=== PATIENT | female | born 1990 | race Two or more races ===

== ENCOUNTER 2023-05-24 21:28 | Outpatient (REF) | payer MEDICAID, SELFPAY ==
[2023-05-31 11:28] LABS: Age Gdln ACOG Testing Note (.); HPV Aptima Negative (Negative); IGP, Aptima HPV, rfx 16/18,45 Note (.)
== END 2023-05-24 21:29 | disposition home or self-care (01) ==
LOC: LAB 21:28
PROVIDERS: Visit Provider Physician Assistant
DX: Z12.4 Encounter for screening for malignant neoplasm of cervix (principal); Z11.51 Encounter for screening for human papillomavirus (HPV)
CPT/HCPCS: 87624; G0145

== ENCOUNTER 2024-07-07 14:49 | Outpatient (OUT) | payer MEDICAID, SELFPAY ==
[2024-07-07 15:13] LABS: Basophils Absolute Auto 0.1 10^3/uL (0.0-0.1); Basophils Percent Auto 1.2 % (0.2-2.0); Eosinophils Absolute Auto 0.8 10^3/uL (0.0-0.7); Eosinophils Percent Auto 7.9 % (0.9-7.0); Hematocrit 43.2 % (36.0-48.0); Hemoglobin 14.6 g/dL (12.0-16.0); Immature Granulocytes Abs Auto 0.03 10^3/uL (0.00-0.03); Immature Granulocytes Pct Auto 0.3 % (0.0-0.5); Lymphocytes Absolute Auto 2.6 10^3/uL (1.2-3.8); Lymphocytes Percent Auto 25.3 % (20.5-60.0); Mean Corpuscular HGB Conc 33.8 g/dL (29.9-35.2); Mean Corpuscular Hemoglobin 30.7 pg (26.7-34.0); Mean Corpuscular Volume 90.8 fL (81.0-99.0); Monocytes Absolute Auto 0.8 10^3/uL (0.3-0.8); Monocytes Percent Auto 7.6 % (1.7-12.0); Neutrophils Percent Auto 57.7 % (43.0-75.0); Platelet Count 279 10^3/uL (150-450); Red Blood Count 4.76 10^6/uL (4.20-5.40); Red Cell Distribution Width 11.9 % (11.0-15.0); White Blood Count 10.3 10^3/uL (4.0-11.0)
[2024-07-07 15:41] LABS: Estimated Average Glucose 103 mg/dL; Glycohemoglobin A1C 5.2 % (4.5-6.2)
[2024-07-07 15:47] LABS: Thyroid Stimulating Hormone 1.034 uIU/mL (0.358-3.740)
[2024-07-07 15:50] LABS: HCG Quantitative <1 mIU/mL
[2024-07-08 04:12] LABS: Estradiol 22.5 pg/mL (.); FSH 7.4 mIU/mL (.); Luteinizing Hormone(LH) 9.2 mIU/mL (.)
[2024-07-09 22:06] LABS: Anti-Mullerian Hormone (AMH) 8.12 ng/mL (.)
== END 2024-07-07 14:50 | disposition home or self-care (01) ==
LOC: LAB 14:51
PROVIDERS: Visit Provider Obstetrics & Gynecology
DX: N92.6 Irregular menstruation, unspecified (principal)
CPT/HCPCS: 36415; 82397; 82626; 82627; 82670; 83001; 83002; 83036; 84439; 84443; 84702; 85025

== ENCOUNTER 2024-08-23 11:01 | Outpatient (OUT) | payer MEDICAID, SELFPAY ==
--- OUTSIDE RECORDS SUMMARY | 2024-08-23 11:04 | XMS_ITS | CCD ---
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 soft. Musculoskeletal: Cervical back: Normal range of motion and neck supple. No rigidity or tenderness. Right lower leg: No edema. Left lower leg: No edema. Lymphadenopathy: Cervical: No cervical adenopathy. Skin: General: Skin is warm and dry. Capillary Refill: Capillary refill takes less than 2 seconds. Findings: No erythema or rash. Neurological: General: No focal deficit present. Mental Status: She is alert and oriented to person, place, and time. Sensory: No sensory deficit. Motor: No weakness. Coordination: Coordination normal. Gait: Gait normal. Deep Tendon Reflexes: Reflexes normal. Psychiatric: Mood and Affect: Mood normal. Behavior: Behavior normal. Assessment/Plan Discussed concussion and symptoms. Discussed that she may continue to have symptoms for weeks, but to please ensure adequate hydration and rest. She will call the office if symptoms do not improve or worsen. She will let me know if she needs a work of school or work. She can continue with tylenol, ibuprofen, and cyclobenzaprine PRN. She can take daily antihistamine and flonase for rhinorrhea. Keep routine FU. Jaya was seen today for follow-up. Diagnoses and all orders for this visit: Postconcussive syndrome Strain of neck muscle, subsequent encounter Strain of lumbar region, subsequent encounter Other orders - fluticasone propionate (FLONASE) 50 mcg/actuation nasal spray; Administer 2 sprays into each nostril in the morning. - loratadine (CLARITIN) 10 mg tablet; Take 1 tablet (10 mg total) by mouth in the morning. JERSEY Shin 12/23/23 1428 documented in this encounter [facility] 12-07-2023 History of Presen t illness Narrative Subjective Patient ID: Jaya Jones is a 33 y.o. female. HPI Jaya presents to the office for follow up on anxiety. She was initiated on Effexor 37.5 mg and these seems to be working for her anxiety and helping the migraines as well. She reports she has not taken the hydroxyzine, she is concerned about the side effects as she is going to school and has long hours of both work and school, and cannot afford to have to take a nap. Jaya reports she has been taking Magnesium 250 mg for about 2 weeks at bedtime and this also seems to be working well for her. She reports she continues to get anxiety, she feels that she gets palpitations during stressful times. She feels that these periods of anxiety or stress occur about 3 times weekly. The following portions of the patient's history were reviewed and updated as appropriate: allergies, current medications, past family history, past medical history, past social history, past surgical history, and problem list. Review of Systems Constitutional: Negative for chills, diaphoresis, fatigue, fever and unexpected weight change. HENT: Negative. Respiratory: Negative for chest tightness, shortness of breath and wheezing. Cardiovascular: Positive for palpitations. Negative for chest pain and leg swelling. Gastrointestinal: Negative for abdominal pain and blood in stool. Genitourinary: Negative for dysuria and hematuria. Musculoskeletal: Negative. Skin: Negative. Neurological: Negative for dizziness, syncope, weakness and light-headedness. Psychiatric/Behavioral: Negative for self-injury and suicidal ideas. The patient is nervous/anxious. Objective Physical Exam Vitals and nursing note reviewed. Constitutional: Appearance: Normal appearance. HENT: Head: Normocephalic and atraumatic. Cardiovascular: Rate and Rhythm: Normal rate and regular rhythm. Pulses: Normal pulses. Heart sounds: Normal heart sounds. Pulmonary: Effort: Pulmonary effort is normal. No respiratory distress. Breath sounds: Normal breath sounds. No stridor. No wheezing, rhonchi or rales. Chest: Chest wall: No tenderness. Musculoskeletal: Cervical back: Normal range of motion and neck supple. Right lower leg: No edema. Left lower leg: No edema. Skin: General: Skin is warm and dry. Capillary Refill: Capillary refill takes less than 2 seconds. Findings: No erythema or rash. Neurological: General: No focal deficit present. Mental Status: She is alert and oriented to person, place, and time. Psychiatric: Mood and Affect: Mood normal. Behavior: Behavior normal. Assessment/Plan She can keep the hydroxyzine and use it if needed. We will add buspar for anxiety. Discussed possibly propranolol as well for anxiety, but this was just a potential thought if buspar not effective. FU 3 months or sooner PRN. Diagnoses and all orders for this visit: Anxiety Other orders - busPIRone (BUSPAR) 5 mg tablet; Take 1 tablet (5 mg total) by mouth in the morning and at bedtime. FrankJERSEY Trejo 12/09/23 1743 documented in this encounter [facility] 12-04-2023 Miscellaneous Notes Formattin g of this note might be different from the original. Please call patient, she has questions regarding her medication Patient called again. Patient has upcoming appointment with PCP on 12/07/2023 at 4:00 PM. Patient needs a refill of Venlafaxine 37.5mg. Chart is showing she has two refills at [facility] pharmacy. Patient states pharmacy says there are no refills. Patient took her last pill yesterday 12/03/2023 and is requesting refill. Is someone able to contact [facility] and find out what is going on? Thank you. Called pharmacy and they stated they had rx ready for patient to citrus picker. Called patient and informed her. She stated understanding. documented in this encounter [facility] 12-04-2023 Telephone encount er Note Please call patient, she has questions regarding her medication [facility] 12-04-2023 Telephone encount er Note Patient called again. Patient has upcoming appointment with PCP on 12/07/2023 at 4:00 PM. Patient needs a refill of Venlafaxine 37.5mg. Chart is showing she has two refills at [facility] pharmacy. Patient states pharmacy says there are no refills. Patient took her last pill yesterday 12/03/2023 and is requesting refill. Is someone able to contact [facility] and find out what is going on? Thank you. [facility] 12-04-2023 Telephone encount er Note Called pharmacy and they stated they had rx ready for patient to citrus picker. [facility] 12-04-2023 Telephone encount er Note Called patient and informed her. She stated understanding. [facility] [employer] [facility] Evaluation note Diagnosis Anxiety- Primary Anxiety state, unspecified [facility] Diagnosis Postconcussive syndrome- Primary Postconcussion syndrome Strain of neck muscle, subsequent encounter Strain of lumbar region, subsequent encounter [facility]* Diagnosis Fever, unspecified fever cause- Primary documented in this encounter [facility] [employer] SystemInstructionsNot on filedocumented in this [facility]* Attachments The following attachments cannot be sent through Care Everywhere. * Propranolol, ADULT (Croatian) * Buspirone, ADULT (Croatian) [facility] Attachments The following attachments cannot be sent through Care Everywhere. * Post-Concussion Syndrome ED (Croatian) * Concussion in adults (Croatian) [facility] SystemInstructionsNot on file [facility] Summary Purpose Family History No Family History Records FoundNo Family History Records FoundNo Family History Records FoundNo Family History Records FoundNo Family History Records Found Advance Directives No Advanced Directives Records FoundNo Advanced Directives Records FoundNo Advanced Directives Records FoundNo Advanced Directives Records FoundNo Advanced Directives Records Found Additional Source Comments INFORMATION SOURCE (unrecogn ized section and content) DATE CREATED AUTHOR 12/22/2020 [facility] DATE CREATED AUTHOR AUTHOR'S ORGANIZ ATION 12/17/2023 [facility] DATE CREATED AUTHOR AUTHOR'S ORGANIZ ATION 03/29/2024 [facility] DATE CREATED AUTHOR AUTHOR'S ORGANIZ ATION 04/25/2024 [facility] DATE CREATED AUTHOR AUTHOR'S ORGANIZ ATION 07/08/2024 [facility] EP[facility] Reason for Visit (unrecogniz ed section and content) Reason Onset Date Comments questions regarding her medications 12/04/2023 Reason Comments Follow-up Concussion Reason Comments Med Refill Care Teams (unrecognized sec tion and content) Benefits Specialist Relationship Specialty Start Date End Date Frank Bennett APRN-CNP PCP - General Nurse Practitioner 05/25/23 Benefits Specialist Relationship Specialty Start Date End Date Frank Bennett APRN-CNP PCP - General Nurse Practitioner 05/25/23 Benefits Specialist Relationship Specialty Start Date End Date Frank Bennett APRN-CNP [address] [place] [phone] PCP - General Nurse Practitioner 12/16/23 Benefits Specialist Relationship Specialty Start Date End Date Frank Bennett APRN-CNP [address] [place] [phone] PCP - General Nurse Practitioner 12/16/23 FOR RECORDS PERTAINING TO PATIENTS WHO ARE OR HAVE BEEN ENROLLED IN A CHEMICAL DEPENDENCY/SUBSTANCEABUSE PROGRAM, SOME INFORMATION MAY BE OMITTED. This clinical summary was aggregated from multiple sources. Caution should be exercised in using it in the provision of clinical care. This summary normalizes information from multiple sources, and as a consequence, information in this document may materially change the coding, format and clinical context of patient data. In addition, data may be omitted in some cases. CLINICAL DECISIONS SHOULD BE BASED ON THE PRIMARY CLINICAL RECORDS. [facility]. provides no warranty or guarantee of the accuracy or completeness of information in this document.
--- NOTE | 2024-08-23 11:06 | US_ITS ---
[address] [address] Patient Name: JAYA JENNINGS MRN: [id number] date: 1990 Sex: F Assigned Patient Location: US Current Patient Location: Accession/Order Number: [id number] Exam Date: 08/23/2024 11:08 Report Date: 08/24/2024 04:30 At the request of: SARAH WISDOM Procedure: US OB transvaginal EXAMINATION: US OB transvaginal HISTORY: IRREGULAR MENSTRUAL CYCLES N92.6 COMPARISON: No relevant comparison available. FINDINGS: GESTATIONAL SAC: Present YOLK SAC: Present POLE: Absent CARDIAC: Absent UTERUS: Normal size and appearance. OVARIES: Right: Normal. Left: Corpus lutein cyst. CERVIX: Closed. Length was not measured.. CUL-DE-SAC: Normal. OTHER: None. AGE BY LMP: Not provided NIXON BY LMP: AGE BY US CRL: Not provided NIXON BY US CRL: US/US OB transvaginal IMPRESSION: 1. Intrauterine gestational sac containing a yolk sac. Gestational sac size was not measured to allow calculation of estimated gestational age. Follow-up recommended. Electronically authenticated by: NAVI JEFFRIES Date: 08/24/2024 04:30
== END 2024-08-23 11:02 | disposition home or self-care (01) ==
LOC: US 11:02
PROVIDERS: Visit Provider Obstetrics & Gynecology
DX: N92.6 Irregular menstruation, unspecified (principal)
CPT/HCPCS: 76817

== ENCOUNTER 2024-10-02 14:54 | Outpatient (OUT) | payer MEDICAID, SELFPAY ==
--- NOTE | 2024-10-02 14:57 | US_ITS ---
[address] [address] Patient Name: JAYA JENNINGS MRN: [id number] date: 1990 Sex: F Assigned Patient Location: [facility] Current Patient Location: [facility] Accession/Order Number: [id number] Exam Date: 10/02/2024 14:58 Report Date: 10/04/2024 08:31 At the request of: SARAH WISDOM Procedure: US OB <= 14 weeks fetus EXAMINATION: US OB <= 14 weeks fetus HISTORY: MISSED MENSES COMPARISON: Ultrasound OB transvaginal 08/23/2024 FINDINGS: GESTATIONAL SAC: Present and normal appearing. YOLK SAC: Not seen. POLE: Present and normal appearing. CARDIAC: 159 bpm UTERUS: Normal size and appearance. OVARIES: Right: Not seen. Left: Corpus lutein cyst. CERVIX: Not measured.. CUL-DE-SAC: Normal. OTHER: None. AGE BY LMP: 13 weeks 1 day NIXON BY LMP: 04/08/2025 AGE BY US CRL: 12 weeks 2 days NIXON BY US CRL: 04/14/2025 US/US OB <= 14 weeks fetus IMPRESSION: 1. Single live intrauterine . Electronically authenticated by: NAVI JEFFRIES Date: 10/04/2024 08:31
--- OUTSIDE RECORDS SUMMARY | 2024-10-02 15:11 | XMS_ITS | CCD ---
Author Organization [facility] Care Team Providers Care Lay Out And Detail Drafter Name Role Phone REQUEST, NONE LISTED Admitting Unavailable BRAD WRIGHT Consulting Unavailable REQUEST, NONE LISTED Attending Unavailable REQUEST, NONE LISTED Attending Unavailable REQUEST, NONE LISTED Consulting Unavailable REQUEST, NONE LISTED Admitting Unavailable Bennett Huma PUTNAMndra Primary Care Provider BENNETT, FRANK Primary Care Unavailable CHITRA JEFFREY Attending Unavailable RACHELECHITRA VO Attending Unavailable RACHELECHITRA VO H Referring Unavailable BENNETT, FRANK Primary Care Unavailable Bennett PLUMBING CONTRACTOR-PRINTER APPRENTICE Frank Primary Care Provider BENNETT, FRANK Referring [...] Referring Unavailable BENNETT, FRANK Primary Care Unavailable Hayden Duque MD Primary Care Provider SARAH DHALIWAL Attending Unavailable SARAH DHALIWAL Attending Unavailable Allergies Allergy Classification Reported Allergen(s) Allergy Type Date of Onset Reaction(s) Facility (9 sources) Penicillins; Translations: [PENICILLINS] Propensity to adverse reactions to drug 2 [facility] (3 sources) Penicillins Drug Intolerance 2 Palpitations [facility] Work Phone: Medications Current Medications Medication Drug Class(es) Dates [...] every six hours as needed for headache xclhuel-bmevhmgmmqhps-xqbvcmls (EXCEDRIN MIGRAINE) 250-250-65 mg per tablet Take [...] within 12 hours or as directed by MD 30 patch 0 12/16/2023 Active loratadine 10 mg oral tablet (3 sources) Start: 12-20-2023 take 1 tablet by mouth in the morning loratadine (CLARITIN) 10 mg tablet Take 1 tablet (10 mg total) by mouth in the morning. 30 tablet 2 12/20/2023 Active 24 hr metFORMIN hydrochloride 500 mg extended release oral tablet (3 sources) Biguanide Start: 07-07-2024 take 1 tablet by mouth every twenty-four hours at mealtime metFORMIN XR (Glucophage-XR) 500 MG 24 hr tablet Indications: Encounter for weight management Take 1 tablet (500 mg) by mouth in the evening. Take with meals Do not crush, chew, or split. 30 tablet 11 07/07/2024 Active 24 hr venlafaxine 37.5 mg extended [...] Translations: [Candidal stomatitis] Onset: 03-26-2024 Episodic Other complications of (4 sources) Uncertain viability of ; Translations: [ with inconclusive viability, not applicable or unspecified] Onset: 09-22-2024 09-22-2024 Episodic Other injuries and conditions due to external causes (2 sources) Injury of head Onset: 12-16-2023 Episodic Other and delivery including normal (4 sources) ; Translations: [Encounter for supervision of normal , unspecified, unspecified trimester] Onset: 09-22-2024 09-22-2024 Episodic Unclassified (1 source) Rash Onset: 03-26-2024 [...] are dependent on adequate specimen collection. Normal [facility] Comment on above: Performed By: #### C GS #### [facility] ([id number]) [address] [place] [address], [address] [place] [address] HERPES/VARICELLA VIRAL PCRon 03-26-2024 HERPES/VARICELLA VIRAL PCR SPECIMEN SOURCE LESION ORAL CAVITY HERPES SIMPLEX 1 PCR Negative (qualifier value) HSV 1 DNA Not Detected HERPES SIMPLEX 2 PCR Negative (qualifier value) HSV 2 DNA Not Detected VARICELLA ZOSTER PCR Negative (qualifier value) VZV DNA Not Detected Normal [facility] Comment on above: Performed By: #### H SVVZV #### [facility] ([id number]) [address] [place] [address], [address] [place] [address] POCT Influenza A/Influenza B /SARS-COV-2 Veritoron 12-24-2023 External Poct Influenza A Antigen Negative [facility] External Poct Influenza B Antigen Negative [facility] Interpretation and review of laboratory results Normal [facility] SARS-CoV-2 (COVID-19) Ag IA.rapid Ql (Resp) Negative [facility] CT BRAIN WO CONTon CT BRAIN [...] Yonas Leong on 12/16/2023 10:26 PM Normal [facility] CT CERVICAL SPINE WO CONTon 12-17-2023 CT [...] Cruz MD on 12/16/2023 10:25 PM Normal [facility] HCG ( test) Ql (U)o n 12-17-2023 Beta HCG ( test) Ql (U) Negative Normal NEG [facility] Comment on above: Performed By: #### 2 106-3 #### [facility] ([id number]) [address] [place] [address], [place] [address] URN MACROSCOPIC NURon 2023 BILIRUBIN YIN Negative Normal NEG [facility] Comment on above: Performed By: #### N UM #### [facility] ([id number]) [address] [place] [address] [place] [address] BLOOD/HGB YIN Large Abnormal NEG [facility] Comment on above: Performed By: #### N UM #### [facility] ([id number]) [address] [place] [address], [place] [address] GLUCOSE YIN Negative Normal NEG [facility] Comment on above: Performed By: #### N UM #### [facility] ([id number]) [address] [place] [address] [place] [address] KETONES YIN Negative Normal NEG [facility] Comment on above: Performed By: #### N UM #### [facility] ([id number]) [address] [place] [address] [place] [address] LEUKOCYTE ESTERASE YIN Negative Normal NEG [facility] Comment on above: Performed By: #### N UM #### [facility] ([id number]) [address] [place] [address] [place] [address] NITRITE YIN Negative Normal NEG [facility] Comment on above: Performed By: #### N UM #### [facility] ([id number]) [address] [place] [address] [place] [address] PH YIN 6.5 Normal 5.0-8.5 [facility] Comment on above: Performed By: #### N UM #### [facility] ([id number]) [address] [place] [address] [place] [address] PROTEIN YIN Negative Normal NEG [facility] Comment on above: Performed By: #### N UM #### [facility] ([id number]) [address] [place] [address], [place] [address] SPECIFIC GRAVITY YIN 1.025 Normal 1.003-1.035 [facility] Comment on above: Performed By: #### N UM #### [facility] ([id number]) [address] [place] [address] [place] [address] UROBILINOGEN YIN 0.2 eu/dL Normal <1.1 [facility] Comment on above: Performed By: #### N UM #### [facility] ([id number]) [address] [place] [address] XR SPINE LUMBAR 2 OR 3 VWSon [...] Cruz MD on 12/16/2023 10:25 PM Normal [facility] Vital Signs Date Time Vital Sign Value Performing Clinician Facility 09-22-2024 09:23-0500 Body weight 74.75 kg Owlin DO Work Phone: [facility] 09-22-2024 09:23-0500 Diastolic blood pressure 62 mm[Hg] Sarah Isra DO Work Phone: [facility] 09-22-2024 09:23-0500 Systolic blood pressure 94 mm[Hg] Sarah Isra DO Work Phone: [facility] 12-20-2023 13:46-0500 Body mass index (BMI) [Ratio] 27.33 kg/m2 Frank Bennett PLUMBING CONTRACTOR-PRINTER APPRENTICE Work Phone: [facility] 12-20-2023 13:46-0500 Body temperature 98.01 [degF] Frank Bennett PLUMBING CONTRACTOR-PRINTER APPRENTICE Work Phone: [facility] 12-20-2023 13:46-0500 Body weight 67.77 kg Frank Bennett PLUMBING CONTRACTOR-PRINTER APPRENTICE Work Phone: [facility] 12-20-2023 13:46-0500 Diastolic blood pressure 64 mm[Hg] Frank Bennett PLUMBING CONTRACTOR-PRINTER APPRENTICE Work Phone: [facility] 12-20-2023 13:46-0500 Heart rate 99 /min Frank Bennett PLUMBING CONTRACTOR-PRINTER APPRENTICE Work Phone: [facility] 12-20-2023 13:46-0500 SaO2% (BldA) [Mass fraction] 96 % Frank Bennett PLUMBING CONTRACTOR-PRINTER APPRENTICE Work Phone: [facility] 12-20-2023 13:46-0500 Systolic blood pressure 116 mm[Hg] Frank Bennett PLUMBING CONTRACTOR-PRINTER APPRENTICE Work Phone: [facility] 12-07-2023 16:03-0500 Body height 152.4 cm Frank Bennett PLUMBING CONTRACTOR-PRINTER APPRENTICE Work Phone: [facility] 12-07-2023 16:03-0500 Body mass index (BMI) [Ratio] 29.33 kg/m2 Frank Bennett PLUMBING CONTRACTOR-PRINTER APPRENTICE Work Phone: [facility] 12-07-2023 16:03-0500 Body temperature 98.49 [degF] Frank Bennett PLUMBING CONTRACTOR-PRINTER APPRENTICE Work Phone: [facility] 12-07-2023 16:03-0500 Body weight 68.13 kg Frank Bennett PLUMBING CONTRACTOR-PRINTER APPRENTICE Work Phone: [facility] 12-07-2023 16:03-0500 Diastolic blood pressure 78 mm[Hg] Frank Bennett PLUMBING CONTRACTOR-PRINTER APPRENTICE Work Phone: [facility] 12-07-2023 16:03-0500 Heart rate 95 /min Frank Bennett PLUMBING CONTRACTOR-PRINTER APPRENTICE Work Phone: [facility] 12-07-2023 16:03-0500 Respiratory rate 18 /min Frank Bennett PLUMBING CONTRACTOR-PRINTER APPRENTICE Work Phone: [facility] 12-07-2023 16:03-0500 SaO2% (BldA) [Mass fraction] 98 % Frank Bennett PLUMBING CONTRACTOR-PRINTER APPRENTICE Work Phone: [facility] 12-07-2023 16:03-0500 Systolic blood pressure 118 mm[Hg] Frank Bennett PLUMBING CONTRACTOR-PRINTER APPRENTICE Work Phone: [facility] Encounters Encounter Date Encounter Type Care Provider Facility Start: 09-22-2024 End: 09-22-2024 Bamboo flowsheet Sarah Isra DO Work Phone: [facility] Start: 09-22-2024 End: 09-22-2024 Bamboo flowsheet Sarah Isra DO Work Phone: [facility] Start: 09-22-2024 End: 09-22-2024 Office outpatient visit 15 minutes Sarah Isra DO Work Phone: [facility] Comment on above: with uncer tain viability, single or unspecified fetus; , unspecified gestational age Start: 09-22-2024 End: 09-22-2024 ambulatory SARAH ISRA Not Available Start: 07-07-2024 End: 07-07-2024 ambulatory SARAH ISRA Not Available Start: 04-24-2024 End: 04-24-2024 ambulatory [facility] Start: 03-26-2024 End: 03-27-2024 ambulatory [facility] Start: 03-26-2024 End: 03-26-2024 ambulatory [facility] Start: 12-25-2023 Refill Frank Roja s PLUMBING CONTRACTOR-PRINTER APPRENTICE [facility] Start: 12-24-2023 End: 12-24-2023 Clinical Support Frank Camposs PLUMBING CONTRACTOR-PRINTER APPRENTICE Work Phone: [facility] Comment on above: Fever, unspecified f ever cause (Primary Dx) Start: 12-20-2023 End: 12-20-2023 ambulatory [facility] Start: 12-20-2023 End: 12-20-2023 Office outpatient visit 15 minutes Frank Bennett PLUMBING CONTRACTOR-PRINTER APPRENTICE Work Phone: [facility] Comment on above: Postconcussive syndr ome (Primary Dx); Strain of neck muscle, subsequent encounter; Strain of lumbar region, subsequent encounter Start: 12-16-2023 End: 12-17-2023 Emergency department patient visit CHITRA JEFFREY [facility] Start: 12-07-2023 End: 12-07-2023 Office outpatient visit 10 minutes [facility] PLUMBING CONTRACTOR-PRINTER APPRENTICE Work Phone: [facility] Comment on above: Anxiety (Primary Dx) Start: 12-07-2023 End: 12-07-2023 ambulatory [facility] Start: 12-04-2023 Telephone encounter Yazmin Avila CMA [facility] Comment on above: questions regarding her medications Start: 12-22-2020 End: 12-23-2020 Patient encounter procedure NONE LISTED REQUEST Facility: Start: 11-24-2020 End: 11-25-2020 Patient encounter procedure NONE LISTED REQUEST Facility: Procedures Date Procedure Procedure Detail Performing Clinician Start: 12-24-2023 POCT INFLUENZA A/INF LUENZA B/SARS-COV-2 VERITOR [facility] Bennett PLUMBING CONTRACTOR-PRINTER APPRENTICE Work Phone: Start: 12-20-2023 Follow-up visit Follow-up STARLA BENNETT Start: 12-07-2023 Adult depression scr eening assessment Frank Bennett PLUMBING CONTRACTOR-PRINTER APPRENTICE Work Phone: Start: 05-25-2023 Adult depression scr eening assessment Yazmin Avila CMA Start: 05-24-2023 Microscopic observat ion [Identifier] in Cervix by Cyto stain Sarah Dhaliwal DO Work Phone: Plan of Treatment Date Care Activity Detail Author Start: 06-28-2028 Screening for malign ant neoplasm of cervix [facility] Start: 02-02-2028 DTaP,Tdap and Td Vaccines (7 - Td or Tdap) DTaP,Tdap and Td Vaccines (7 - Td or Tdap) [facility] Start: 05-24-2026 Screening for malign ant neoplasm of cervix Pap Smear [facility] Start: 12-23-2024 Tobacco Screening Tobacco Screening [facility] Start: 12-20-2024 Adult BMI Screening Adult BMI Screen ing [facility] Start: 12-20-2024 Tobacco Screening Tobacco Screening [facility] Start: 12-07-2024 Adult BMI Screening Adult BMI Screen ing [facility] Start: 12-07-2024 Depression Screening Depression Scre ening [facility] Start: 12-07-2024 Tobacco Screening Tobacco Screening [facility] Start: 10-02-2024 End: 10-02-2024 ambulatory 10/02/2024 3:00 PM EST Initial [facility] [address] [facility] [place] [id number] [facility] Start: 10-02-2024 End: 10-02-2024 Professional / ancillary services management 10/02/2024 2:30 PM EST Ancillary Procedure [facility] [address] [place] [id number] [facility] Start: 10-01-2024 Adult BMI Screening Adult BMI Screen ing [facility] Start: 10-01-2024 Tobacco Screening Tobacco Screening [facility] Start: 09-22-2024 End: 09-22-2024 Patient encounter procedure 09/22/2024 8:50 AM EST Office Visit [facility] [address] [place] [id number] Sarah Dhaliwal DO [address] [place] [address] Arrived [facility] Comment on above: Arrived Start: 07-13-2024 Influenza vaccination Influenza Vacc ine (#1) [facility] Start: 05-25-2024 Depression Screening Depression Scre ening [facility] Start: 03-14-2024 End: 03-14-2024 Patient encounter procedure 03/14/2024 4:00 PM EDT Office Visit [facility] [address] [place] [address], [place] [phone] Frank Bennett APRN-PRINTER APPRENTICE [address] [place] [address], [place] [address] [facility] Start: 12-07-2023 End: 12-07-2023 Patient encounter procedure 12/07/2023 4:00 PM EST Office Visit [facility] [address] [place] [address], [place] [phone] Frank Bennett APRN-PRINTER APPRENTICE [address] [place] [id number] [facility] Start: 07-13-2023 COVID-19 Vaccine ( season) COVID-19 Vaccine ( season) [facility] Start: 2013 Screening for malign ant neoplasm of cervix Pap Smear [facility] Start: 2010 Adult BMI Follow Up Plan Adult BMI Follow Up Plan [facility] Immunizations Immunization Date Immunization Notes Care Provider Fa nitesh 08-16-2023 influenza, injectabl e, quadrivalent, preservative free Yazmin Avila [facility] 08-16-2023 influenza virus vacc ine, unspecified formulation Sarah Dhaliwal DO Work Phone: [facility] 02-01-2018 tetanus toxoid, redu ambrose diphtheria toxoid, and acellular pertussis vaccine, adsorbed Yazmin Avila [facility] 11-11-2012 Human Papillomavirus 9-valent vaccine Yazmin Avila [facility] 08-28-2006 influenza, seasonal, injectable Yazmin Avila [facility] 06-27-2006 tetanus toxoid, redu ambrose diphtheria toxoid, and acellular pertussis vaccine, adsorbed Yazmin Avila [facility] 08-18-2000 measles, mumps and rubella virus vaccine Yazmin [facility] 02-12-1996 diphtheria, tetanus toxoids and acellular pertussis vaccine, unspecified formulation Yazmindontae Avila [facility] 02-12-1996 hepatitis B vaccine, pediatric or pediatric/adolescent dosage Yazmin [facility] 02-06-1995 diphtheria, tetanus toxoids and acellular pertussis vaccine, unspecified formulation [facility] 02-06-1995 haemophilus influenz ae type b vaccine, conjugate unspecified formulation Yazmin [facility] 02-06-1995 hepatitis B vaccine, pediatric or pediatric/adolescent dosage Yazmin [facility] 02-06-1995 poliovirus vaccine, unspecified formulation [facility] 11-01-1994 diphtheria, tetanus toxoids and acellular pertussis vaccine, unspecified formulation [facility] 11-01-1994 haemophilus influenz ae type b vaccine, conjugate unspecified formulation [facility] 11-01-1994 measles, mumps and rubella virus vaccine Yazmin [facility] 11-01-1994 poliovirus vaccine, unspecified formulation Yazmin [facility] 03-07-1993 diphtheria, tetanus toxoids and acellular pertussis vaccine, unspecified formulation Yazmin [facility] 03-07-1993 haemophilus influenz ae type b vaccine, conjugate unspecified formulation [facility] 03-07-1993 hepatitis B vaccine, pediatric or pediatric/adolescent dosage Yazmin [facility] 03-07-1993 poliovirus vaccine, unspecified formulation [facility] Payers Date Payer Category Payer Medicaid [id number] 2023 Medicaid [id number] 1992 Unknown [id number] 2.16.8 [id number] 1992 Unknown [id number] 2.16.8 [id number] 1992 Unknown [id number] 2.16.8 [id number] 1992 Unknown [id number] 2.16.8 40.1.979882.3.579.2.1286 1992 Unknown [id number] 2.16.8 40.1.771722.3.579.2.1286 1992 Unknown [id number] 2.16.8 40.1.135912.3.579.2.1286 1992 Unknown [id number] 2.16.8 40.1.290889.3.579.2.1286 1992 Unknown [id number] 2.16.8 40.1.771909.3.579.2.1286 1992 Unknown [id number] 2.16.8 [id number] 1992 Unknown [id number] 2.16.8 40.1.821021.3.579.2.1286 1992 Unknown [id number] 2.16.84 0.1.440760.3.579.2.9 1992 Unknown [id number] 2.16.84 [id number] 1959 Self-pay Unknown [id number] 2.16.84 [id number] Unknown [id number] 2.16.84 [id number] Social History Date Type Detail Facility Start: 05-23-2023 End: 05-25-2023 Tobacco smoking status ILIS Never smoked tobacco [facility] Start: 05-25-2023 Tobacco use and exposure Smokeless tobacco non-user [facility] Start: 10-01-2023 End: 07-07-2024 Alcohol intake Lifetime non-drinker (finding) [facility] Start: 10-01-2023 End: 07-07-2024 History of Social function [facility] Start: 10-01-2023 End: 07-07-2024 Tobacco use panel [facility] Adolescent depressio n screening assessment 0 [facility] Start: 1990 Sex Assigned At Not on file P [facility] Clinical Notes 12-04-2023 to 09-22-2024 Makayla Mirandafrida, [employer] - 09/22/2024 8:50 AM ESTFrank Bennett, [facility] - 12/24/2023 1:00 PM ESTAddendum Note - Frank Martínezjas, PLUMBING CONTRACTOR-[facility] - 12/24/2023 1:00 PM EST Note Date & Type Note Facility 09-22-2024 History of Presen t illness Narrative Reason for Appointment: Patient ID: Patience Jones is a 34 y.o. female who presents for No chief complaint on file. Patient presents today for Consult appointment. MEDICATIONS Current Outpatient Medications Medication Instructions metFORMIN XR (GLUCOPHAGE-XR) 500 mg, Oral, Daily with evening meal, Do not crush, chew, or split. ALLERGIES Allergies Allergen Reactions Penicillins Palpitations PROBLEMS Active Ambulatory Problems Diagnosis Date Noted No Active Ambulatory Problems Resolved Ambulatory Problems Diagnosis Date Noted No Resolved Ambulatory Problems Past Medical History: Diagnosis Date Ganglion cyst of wrist, left HISTORY PAST MEDICAL HISTORY SOCIAL HISTORY Past Medical History: Diagnosis Date Ganglion cyst of wrist, left Social History Tobacco Use Smoking status: Never Smokeless tobacco: Not on file Substance Use Topics Alcohol use: Never Drug use: Not on file FAMILY HISTORY No family history on file. SURGICAL HISTORY No past surgical history on file. REVIEW OF SYSTEMS Review of Systems: Review of Systems All other systems reviewed and are negative. OBJECTIVE Objective: Physical Exam Constitutional: Appearance: Normal appearance. She is well-developed. Cardiovascular: Rate and Rhythm: Normal rate and regular rhythm. Pulmonary: Effort: Pulmonary effort is normal. Breath sounds: Normal breath sounds. Abdominal: General: Bowel sounds are normal. There is no distension. Palpations: Abdomen is soft. Tenderness: There is no abdominal tenderness. There is no guarding or rebound. Musculoskeletal: General: No swelling. Normal range of motion. Right lower leg: No edema. Left lower leg: No edema. Neurological: Mental Status: She is alert and oriented to person, place, and time. Skin: General: Skin is warm and dry. Psychiatric: Mood and Affect: Mood normal. Behavior: Behavior normal. Vitals and nursing note reviewed. Exam conducted with a sliver handler present. Vitals: There is no height or weight on file to calculate BMI. BP: No LMP recorded. ASSESSMENT & PLAN Patient presents today for follow up ultrasound. Patient made aware that office attempted to contact her with results. Bedside scan performed and viable shown. Patient to schedule for OB Intake. Patient verbalized understanding and excited for the news. Documented by Makayla Jara LPN on behalf of: Sarah Dhaliwal DO documented in this encounter [facility] 12-24-2023 History of Presen t illness Narrative Covid test completed today. JERSEY Shin 12/24/23 1327 documented in this encounter [facility] 12-24-2023 Miscellaneous Notes Addended by: FRANK BENNETT on: 12/24/2023 03:02 PM Modules accepted: Orders documented in this encounter [facility] 12-24-2023 Note Addended by: FRANK BENNETT on: 12/24/2023 03:02 PM Modules accepted: Orders [facility] 12-20-2023 History of Presen t illness Narrative Subjective Patient ID: Patience Jones is a 33 y.o. female. HPI Patience presents to the office for ED follow up on possible concussion. Patience went to [facility] ED on 12/16/2023 after she bumped [...] and flonase for rhinorrhea. Keep routine FU. Patience was seen today for follow-up. Diagnoses and [...] Shin 12/23/23 1428 documented in this encounter [facility] 12-07-2023 History of Presen t illness Narrative Subjective Patient ID: Patience Jones is a 33 y.o. female. HPI Patience presents to the office for follow up [...] afford to have to take a nap. Patience reports she has been taking Magnesium 250 [...] mouth in the morning and at bedtime. JERSEY Shin 12/09/23 [id number] documented in this encounter [facility] 12-04-2023 Miscellaneous Notes Formattin g of this note might be different from the original. Please call patient, she has questions regarding her medication Patient called again. Patient has upcoming appointment with PCP on 12/07/2023 at 4:00 PM. Patient needs a refill of Venlafaxine 37.5mg. Chart is showing she has two refills at [facility] pharmacy. Patient states pharmacy says there are no refills. Patient took her last pill yesterday 12/03/2023 and is requesting refill. Is someone able to contact [facility] and find out what is going on? Thank you. Called pharmacy and they stated they had rx ready for patient to cook pickled meat. Called patient and informed her. She stated understanding. [facility] encount er Note Please call patient, she has questions regarding her medication [employer] 12-04-2023 Telephone encount er Note Patient called again. Patient has upcoming appointment with PCP on 12/07/2023 at 4:00 PM. Patient needs a refill of Venlafaxine 37.5mg. Chart is showing she has two refills at [facility] pharmacy. Patient states pharmacy says there are no refills. Patient took her last pill yesterday 12/03/2023 and is requesting refill. Is someone able to contact [facility] and find out what is going on? Thank you. [facility] 12-04-2023 Telephone encount er Note Called pharmacy and they stated they had rx ready for patient to cook pickled meat. [facility] [employer] [facility] 12-04-2023 Telephone encount er Note Called patient and informed her. She stated understanding. [facility] Evaluation note Diagnosis Anxiety- Primary Anxiety state, unspecified documented [facility] Diagnosis Postconcussive syndrome- Primary Postconcussion syndrome Strain of neck muscle, subsequent encounter Strain of lumbar region, subsequent encounter [facility] Diagnosis Fever, unspecified fever cause- Primary documented [facility]* Diagnosis with uncertain viability, single or unspecified fetus , unspecified gestational age documented in this encounter [facility]ructionsNot on filedocumented in this encounterW[facility]* Attachments The following attachments cannot be sent through Care Everywhere. * Propranolol, ADULT (Vietnamese) * Buspirone, ADULT (Vietnamese) [facility]* Attachments The following attachments cannot be sent through Care Everywhere. * Post-Concussion Syndrome ED (Vietnamese) * Concussion in adults (Vietnamese) [facility] SystemInstructionsNot on file [facility] Purpose Family History No Family History Records FoundNo Family History Records FoundNo Family History Records FoundNo Family History Records FoundNo Family History Records Found Advance Directives No Advanced Directives Records FoundNo Advanced Directives Records FoundNo Advanced Directives Records FoundNo Advanced Directives Records FoundNo Advanced Directives Records Found Additional Source Comments INFORMATION SOURCE (unrecogn ized section and content) DATE CREATED AUTHOR 12/22/2020 [facility] DATE CREATED AUTHOR AUTHOR'S ORGANIZ ATION 12/17/2023 [facility] DATE CREATED AUTHOR AUTHOR'S ORGANIZ ATION 03/29/2024 [facility] DATE CREATED AUTHOR AUTHOR'S ORGANIZ ATION 04/25/2024 [facility] DATE CREATED AUTHOR AUTHOR'S ORGANIZ ATION 09/23/2024 [facility] EPIC Reason for Visit (unrecogniz ed section and content) Reason Onset Date Comments questions regarding her medications 12/04/2023 Reason Comments Follow-up Concussion Reason Comments Med Refill Reason Comments ultrasound results Care Teams (unrecognized sec tion and content) [employer] Out [employer] Detail Drafter Relationship Specialty Start Date End Date [facility] - General Nurse Practitioner 05/25/23 [employer] Detail Drafter Relationship Specialty Start Date End Date [facility] - General Nurse Practitioner 05/25/23 [employer] And Detail Drafter Relationship Specialty Start Date End Date [facility] [address] [place] [phone] PCP - General Nurse Practitioner 12/16/23 [employer] Out And Detail Drafter Relationship Specialty Start Date End Date Frank Bennett [facility] [address] [place] [phone] PCP - General Nurse Practitioner 12/16/23 Lay Out And Detail Drafter Relationship Specialty Start Date End Date Hayden Duque MD [address] [place] [address], [address] [place] [address] PCP - General Family Medicine 05/24/23 Lay Out And Detail Drafter Relationship Specialty Start Date End Date Hayden Duque MD [address] [place] [address], [address] [place] [address] PCP - General Family Medicine 05/24/23 FOR RECORDS PERTAINING TO PATIENTS WHO ARE [...] BE BASED ON THE PRIMARY CLINICAL RECORDS. [employer] [facility]. provides no warranty or guarantee of the accuracy or completeness of information in this document.
== END 2024-10-02 14:55 | disposition home or self-care (01) ==
LOC: NOMS 14:54
PROVIDERS: Visit Provider Obstetrics & Gynecology
DX: Z34.92 Encounter for supervision of normal pregnancy, unspecified, second trimester (principal); Z3A.13 13 weeks gestation of pregnancy; N92.6 Irregular menstruation, unspecified
CPT/HCPCS: 36415; 76801; 80307; 83036; 85025; 86592; 86762; 86803; 86850; 86900; 86901; 87086; 87150; 87340; 87389

== ENCOUNTER 2024-10-02 16:11 | Outpatient (OUT) | payer MEDICAID, SELFPAY ==
--- OUTSIDE RECORDS SUMMARY | 2024-10-02 16:32 | XMS_ITS | CCD ---
Author Organization [facility] Care Team Providers Care Four Horse Hitch Driver Name Role Phone REQUEST, NONE LISTED Admitting Unavailable BRAD WRIGHT Consulting Unavailable REQUEST, NONE LISTED Attending Unavailable REQUEST, NONE LISTED Attending Unavailable REQUEST, NONE LISTED Consulting Unavailable REQUEST, NONE LISTED Admitting Unavailable Bennett Huma PUTNAMndra Primary Care Provider BENNETT, FRANK Primary Care Unavailable CHITRA JEFFREY Attending Unavailable RACHELECHITRA VO Attending Unavailable RACHELECHITRA VO H Referring Unavailable BENNETT, FRANK Primary Care Unavailable Bennett SHOOTING GALLERY OPERATOR-COMMISSION AGENT [employer] Frank Primary Care Provider BENNETT, FRANK Referring [...] Unavailable Hayden Duque MD Primary Care Provider [phone] SARAH DHALIWAL Attending Unavailable SARAH DHALIWAL Attending Unavailable Allergies Allergy Classification Reported Allergen(s) Allergy Type Date of Onset Reaction(s) Facility (9 sources) Penicillins; Translations: [PENICILLINS] Propensity to adverse reactions to drug 2 [facility] (3 sources) Penicillins Drug Intolerance 2 Palpitations [...] every six hours as needed for headache zbdekzz-hcfwadxcxyjoq-qyduktli (EXCEDRIN MIGRAINE) 250-250-65 mg per tablet Take [...] are dependent on adequate specimen collection. Normal [facility] Comment on above: Performed By: #### C GS #### [facility] ([id number]) [address] [place] [address], [address] [place] [address] HERPES/VARICELLA VIRAL PCRon 03-26-2024 HERPES/VARICELLA VIRAL PCR SPECIMEN SOURCE LESION ORAL CAVITY HERPES SIMPLEX 1 PCR Negative (qualifier value) HSV 1 DNA Not Detected HERPES SIMPLEX 2 PCR Negative (qualifier value) HSV 2 DNA Not Detected VARICELLA ZOSTER PCR Negative (qualifier value) VZV DNA Not Detected Normal [facility] Comment on above: Performed By: #### H SVVZV #### [facility] ([id number]) [address] [place] [address], [address] [place] [address] POCT Influenza A/Influenza B /SARS-COV-2 Veritoron 12-24-2023 External Poct Influenza A Antigen Negative [facility] External Poct Influenza B Antigen Negative [facility] Interpretation and review of laboratory results Normal [facility] SARS-CoV-2 (COVID-19) Ag IA.rapid Ql (Resp) Negative [facility] CT BRAIN WO CONTon CT BRAIN WO [...] Yonas Leong on 12/16/2023 10:26 PM Normal [facility] CT CERVICAL SPINE WO CONTon 12-17-2023 CT [...] Cruz MD on 12/16/2023 10:25 PM Normal [facility] HCG ( test) Ql (U)o n 12-17-2023 Beta HCG ( test) Ql (U) Negative Normal NEG [facility] Comment on above: Performed By: #### 2 [id number] #### [facility] ([id number]) [address] [place] [address], [place] [address] URN MACROSCOPIC NURon 2023 BILIRUBIN YIN Negative Normal NEG [facility] Comment on above: Performed By: #### N UM #### [facility] ([id number]) [address] [place] [address] [place] [address] BLOOD/HGB YIN Large Abnormal NEG [facility] Comment on above: Performed By: #### N UM #### [facility] ([id number]) [address] [place] [address], [place] [address] GLUCOSE YIN Negative Normal NEG [facility] Comment on above: Performed By: #### N UM #### [facility] ([id number]) [address] [place] [address] [place] [address] KETONES YIN Negative Normal NEG [facility] Comment on above: Performed By: #### N UM #### [facility] ([id number]) [address] [place] [address] [place] [address] LEUKOCYTE ESTERASE YIN Negative Normal NEG [facility] Comment on above: Performed By: #### N UM #### [facility] ([id number]) [address] [place] [address] [place] [address] NITRITE YIN Negative Normal NEG [facility] Comment on above: Performed By: #### N UM #### [facility] ([id number]) [address] [place] [address] [place] [address] PH YIN 6.5 Normal 5.0-8.5 [facility] Comment on above: Performed By: #### N UM #### [facility] ([id number]) [address] [place] [address] [place] [address] PROTEIN YIN Negative Normal NEG [facility] Comment on above: Performed By: #### N UM #### [facility] ([id number]) [address] [place] [address], [place] [address] SPECIFIC GRAVITY YIN 1.025 Normal 1.003-1.035 [facility] Comment on above: Performed By: #### N UM #### [facility] ([id number]) [address] [place] [address] [place] [address] UROBILINOGEN YIN 0.2 eu/dL Normal <1.1 [facility] Comment on above: Performed By: #### N UM #### [facility] ([id number]) [address] [place] [address] XR SPINE LUMBAR 2 OR 3 VWSon [...] Cruz MD on 12/16/2023 10:25 PM Normal [facility] Vital Signs Date Time Vital Sign Value Performing Clinician Facility 09-22-2024 09:23-0500 Body weight 74.75 kg Qubole DO Work Phone: [facility] 09-22-2024 09:23-0500 Diastolic blood pressure 62 mm[Hg] Sarah Isra DO Work Phone: [facility] 09-22-2024 09:23-0500 Systolic blood pressure 94 mm[Hg] Sarah Isra DO Work Phone: [facility] 12-20-2023 13:46-0500 Body mass index (BMI) [Ratio] 27.33 kg/m2 Frank Bennett SHOOTING GALLERY OPERATOR-COMMISSION AGENT [employer] Work Phone: [facility] 12-20-2023 13:46-0500 Body temperature 98.01 [degF] Frank Bennett SHOOTING GALLERY OPERATOR-COMMISSION AGENT [employer] Work Phone: [facility] 12-20-2023 13:46-0500 Body weight 67.77 kg Frank Bennett SHOOTING GALLERY OPERATOR-COMMISSION AGENT [employer] Work Phone: [facility] 12-20-2023 13:46-0500 Diastolic blood pressure 64 mm[Hg] Frank Bennett SHOOTING GALLERY OPERATOR-COMMISSION AGENT [employer] Work Phone: [facility] 12-20-2023 13:46-0500 Heart rate 99 /min Frank Bennett SHOOTING GALLERY OPERATOR-COMMISSION AGENT [employer] Work Phone: [facility] 12-20-2023 13:46-0500 SaO2% (BldA) [Mass fraction] 96 % Frank Bennett SHOOTING GALLERY OPERATOR-COMMISSION AGENT [employer] Work Phone: [facility] 12-20-2023 13:46-0500 Systolic blood pressure 116 mm[Hg] Frank Bennett SHOOTING GALLERY OPERATOR-COMMISSION AGENT [employer] Work Phone: [facility] 12-07-2023 16:03-0500 Body height 152.4 cm Frank Bennett SHOOTING GALLERY OPERATOR-COMMISSION AGENT [employer] Work Phone: [facility] 12-07-2023 16:03-0500 Body mass index (BMI) [Ratio] 29.33 kg/m2 Frank Bennett SHOOTING GALLERY OPERATOR-COMMISSION AGENT [employer] Work Phone: [facility] 12-07-2023 16:03-0500 Body temperature 98.49 [degF] Frank Bennett SHOOTING GALLERY OPERATOR-COMMISSION AGENT [employer] Work Phone: [facility] 12-07-2023 16:03-0500 Body weight 68.13 kg Frank Bennett SHOOTING GALLERY OPERATOR-COMMISSION AGENT [employer] Work Phone: [facility] 12-07-2023 16:03-0500 Diastolic blood pressure 78 mm[Hg] Frank Bennett SHOOTING GALLERY OPERATOR-COMMISSION AGENT [employer] Work Phone: [facility] 12-07-2023 16:03-0500 Heart rate 95 /min Frank Bennett SHOOTING GALLERY OPERATOR-COMMISSION AGENT [employer] Work Phone: [facility] 12-07-2023 16:03-0500 Respiratory rate 18 /min Frank Bennett SHOOTING GALLERY OPERATOR-COMMISSION AGENT [employer] Work Phone: [facility] 12-07-2023 16:03-0500 SaO2% (BldA) [Mass fraction] 98 % Frank Bennett SHOOTING GALLERY OPERATOR-COMMISSION AGENT [employer] Work Phone: [facility] 12-07-2023 16:03-0500 Systolic blood pressure 118 mm[Hg] Frank Bennett SHOOTING GALLERY OPERATOR-COMMISSION AGENT [employer] Work Phone: [facility] Encounters Encounter Date Encounter Type Care Provider [...] Not Available Start: 04-24-2024 End: 04-24-2024 ambulatory [facility] Start: 03-26-2024 End: 03-27-2024 ambulatory [facility] Start: 03-26-2024 End: 03-26-2024 ambulatory [facility] Start: 12-25-2023 Refill Frank Roja s SHOOTING GALLERY OPERATOR-COMMISSION AGENT [employer] Work Phone: [facility] Start: 12-24-2023 End: 12-24-2023 Clinical Support Frank Camposs SHOOTING GALLERY OPERATOR-COMMISSION AGENT [employer]OCK Work Phone: [facility] Comment on above: Fever, unspecified f ever cause (Primary Dx) Start: 12-20-2023 End: 12-20-2023 ambulatory [facility] Start: 12-20-2023 End: 12-20-2023 Office outpatient visit 15 minutes Frank Bennett SHOOTING GALLERY OPERATOR-COMMISSION AGENT [employer]STOCK Work Phone: [facility] Comment on above: Postconcussive syndr ome (Primary Dx); Strain of neck muscle, subsequent encounter; Strain of lumbar region, subsequent encounter Start: 12-16-2023 End: 12-17-2023 Emergency department patient visit CHITRA JEFFREY [facility] Start: 12-07-2023 End: 12-07-2023 Office outpatient visit 10 minutes [facility] SHOOTING GALLERY OPERATOR-COMMISSION AGENT [employer]OCK Work Phone: [facility] Comment on above: Anxiety (Primary Dx) Start: 12-07-2023 End: 12-07-2023 ambulatory [facility] Start: 12-04-2023 Telephone encounter Yazmin Avila CMA [facility] Comment on above: questions regarding her medications Start: 12-22-2020 End: 12-23-2020 Patient encounter procedure NONE LISTED REQUEST Facility: Start: 11-24-2020 End: 11-25-2020 Patient encounter procedure NONE LISTED REQUEST Facility: Procedures Date Procedure Procedure Detail Performing Clinician Start: 12-24-2023 POCT INFLUENZA A/INF LUENZA B/SARS-COV-2 VERITOR [facility] Bennett SHOOTING GALLERY OPERATOR-COMMISSION AGENT [employer] Work Phone: Start: 12-20-2023 Follow-up visit Follow-up STARLA BENNETT Start: 12-07-2023 Adult depression scr eening assessment Frank Bennett SHOOTING GALLERY OPERATOR-COMMISSION AGENT [employer] Work Phone: Start: 05-25-2023 Adult depression scr eening assessment Yazmin Avila CMA Start: 05-24-2023 Microscopic observat ion [Identifier] in Cervix by Cyto stain Sarah Dhaliwal DO Work Phone: Plan of Treatment Date Care Activity Detail Author Start: 06-28-2028 Screening for malign ant neoplasm of cervix [facility] Start: 02-02-2028 DTaP,Tdap and Td Vaccines (7 - Td or Tdap) DTaP,Tdap and Td Vaccines (7 - Td or Tdap) [facility] Start: 05-24-2026 Screening for malign ant neoplasm of cervix Pap Smear [facility] Start: 12-23-2024 Tobacco Screening Tobacco Screening [facility] Start: 12-20-2024 Adult BMI Screening Adult BMI Screen ing [facility] Start: 12-20-2024 Tobacco Screening Tobacco Screening [facility] Start: 12-07-2024 Adult BMI Screening Adult BMI Screen ing [facility] Start: 12-07-2024 Depression Screening Depression Scre ening [facility] Start: 12-07-2024 Tobacco Screening Tobacco Screening [facility] Start: 10-02-2024 End: 10-02-2024 ambulatory 10/02/2024 3:00 PM EST Initial [facility] [address] [facility] [place] [id number] [facility] Start: 10-02-2024 End: 10-02-2024 Professional / ancillary services management 10/02/2024 2:30 PM EST Ancillary Procedure [facility] [address] [place] [id number] [facility] Start: 10-01-2024 Adult BMI Screening Adult BMI Screen ing [facility] Start: 10-01-2024 Tobacco Screening Tobacco Screening [facility] Start: 09-22-2024 End: 09-22-2024 Patient encounter procedure 09/22/2024 8:50 AM EST Office Visit [facility] [address] [place] [id number] Sarah Dhaliwal DO [address] [place] [address] Arrived [facility] Comment on above: Arrived Start: 07-13-2024 Influenza vaccination Influenza Vacc ine (#1) [facility] Start: 05-25-2024 Depression Screening Depression Scre ening [facility] Start: 03-14-2024 End: 03-14-2024 Patient encounter procedure 03/14/2024 4:00 PM EDT Office Visit [facility] [address] [place] [address], [phone] Frank Bennett APRN-COMMISSION AGENT [employer] [address] [place] [address], [place] [phone] [facility] Start: 12-07-2023 End: 12-07-2023 Patient encounter procedure 12/07/2023 4:00 PM EST Office Visit [facility] [address] [place] [address], [place] [phone] Frank Bennett APRN-COMMISSION AGENT [employer]OCK [address] [place] [phone] [facility] Start: 07-13-2023 COVID-19 Vaccine ( season) COVID-19 Vaccine ( season) [facility] Start: 2013 Screening for malign ant neoplasm of cervix Pap Smear [facility] Start: 2010 Adult BMI Follow Up Plan Adult BMI Follow Up Plan [facility] Immunizations Immunization Date Immunization Notes Care Provider Fa nitesh 08-16-2023 influenza, injectabl e, quadrivalent, preservative free Yazmin Avila [facility] 08-16-2023 influenza virus vacc ine, unspecified formulation Sarah Dhaliwal DO Work Phone: [facility] 02-01-2018 tetanus toxoid, redu ambrose diphtheria toxoid, and acellular pertussis vaccine, adsorbed Yazmin Avila [facility] 11-11-2012 Human Papillomavirus 9-valent vaccine Yazmin Avila [facility] 08-28-2006 influenza, seasonal, injectable Yazmin Avila [facility] 06-27-2006 tetanus toxoid, redu ambrose diphtheria toxoid, and acellular pertussis vaccine, adsorbed Yazmin Avila [facility] 08-18-2000 measles, mumps and rubella virus vaccine Yazmin [facility] 02-12-1996 diphtheria, tetanus toxoids and acellular pertussis vaccine, unspecified formulation Yazmindontae Avila [facility] 02-12-1996 hepatitis B vaccine, pediatric or pediatric/adolescent dosage Yazmin [facility] 02-06-1995 diphtheria, tetanus toxoids and acellular pertussis vaccine, unspecified formulation [facility] 02-06-1995 haemophilus influenz ae type b vaccine, conjugate unspecified formulation Yazmin [facility] 02-06-1995 hepatitis B vaccine, pediatric or pediatric/adolescent dosage Yazmin [facility] 02-06-1995 poliovirus vaccine, unspecified formulation [facility] 11-01-1994 diphtheria, tetanus toxoids and acellular pertussis vaccine, unspecified formulation [facility] 11-01-1994 haemophilus influenz ae type b vaccine, conjugate unspecified formulation [facility] 11-01-1994 measles, mumps and rubella virus vaccine Yazmin [facility] 11-01-1994 poliovirus vaccine, unspecified formulation Yazmin [facility] 03-07-1993 diphtheria, tetanus toxoids and acellular pertussis vaccine, unspecified formulation Yazmin [facility] 03-07-1993 haemophilus influenz ae type b vaccine, conjugate unspecified formulation [facility] 03-07-1993 hepatitis B vaccine, pediatric or pediatric/adolescent dosage Yazmin [facility] 03-07-1993 poliovirus vaccine, unspecified formulation [facility] Payers Date Payer Category Payer Medicaid [id number] 2023 Medicaid [id number] 1992 Unknown [id number] 2.16.8 [id number] 1992 Unknown [id number] 2.16.8 [id number] 1992 Unknown [id number] 2.16.8 [id number] 1992 Unknown [id number] 2.16.8 [id number] 1992 Unknown [id number] 2.16.8 [id number] 1992 Unknown [id number] 2.16.8 [id number] 1992 Unknown [id number] 2.16.8 [id number] 1992 Unknown [id number] 2.16.8 [id number] 1992 Unknown [id number] 2.16.8 [id number] 1992 Unknown [id number] 2.16.8 [id number] 1992 Unknown [id number] 2.16.84 [id number] 1992 Unknown [id number] 2.16.84 [id number] 1959 Self-pay Unknown [id number] 2.16.84 [id number] Unknown [id number] 2.16.84 [id number] Social History Date Type Detail Facility Start: 05-23-2023 End: 05-25-2023 Tobacco smoking status MEIS Never smoked tobacco [facility] Start: 05-25-2023 Tobacco use and exposure Smokeless tobacco non-user [facility] Start: 10-01-2023 End: 07-07-2024 Alcohol intake Lifetime non-drinker (finding) [facility] Start: 10-01-2023 End: 07-07-2024 History of Social function [facility] Start: 10-01-2023 End: 07-07-2024 Tobacco use panel [facility] Adolescent depressio n screening assessment 0 [facility] Start: 1990 Sex Assigned At Not on file P [facility] Clinical Notes 12-04-2023 to 09-22-2024 Makayla Mirandafrida, HOSPITAL LABORATORY TECHNICIAN - 09/22/2024 8:50 AM ESTFrank Bennett, [facility] - 12/24/2023 1:00 PM ESTAddendum Note - Frank Martínezjas, SHOOTING GALLERY OPERATOR-[facility] - 12/24/2023 1:00 PM EST Note Date [...] nursing note reviewed. Exam conducted with a front office associate present. Vitals: There is no height or [...] Sarah Dhaliwal DO documented in this encounter [facility] 12-24-2023 History of Presen t illness Narrative Covid test completed today. JERSEY Shin 12/24/23 1327 documented in this encounter [facility] 12-24-2023 Miscellaneous Notes Addended by: FRANK BENNETT on: 12/24/2023 03:02 PM Modules accepted: Orders documented in this encounter [facility] 12-24-2023 Note Addended by: FRANK BENNETT on: 12/24/2023 03:02 PM Modules accepted: Orders [facility] 12-20-2023 History of Presen t illness Narrative Subjective Patient ID: Patience Jones is a 33 y.o. female. HPI Patience presents to the office for ED follow up on possible concussion. Patience went to [facility] ED on 12/16/2023 after she bumped [...] Shin 12/23/23 1428 documented in this encounter [facility] 12-07-2023 History of Presen t illness Narrative [...] morning and at bedtime. JERSEY Shin 12/09/23 [id number] documented in this encounter [facility] 12-04-2023 Miscellaneous Notes Formattin g of this note might be different from the original. Please call patient, she has questions regarding her medication Patient called again. Patient has upcoming appointment with PCP on 12/07/2023 at 4:00 PM. Patient needs a refill of Venlafaxine 37.5mg. Chart is showing she has two refills at [facility] pharmacy. Patient states pharmacy says there are no refills. Patient took her last pill yesterday 12/03/2023 and is requesting refill. Is someone able to contact [facility] and find out what is going on? Thank you. 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 Called patient and informed her. She stated understanding. [facility] Tele[facility] encount er Note Please call patient, she has questions regarding her medication [facility] 12-04-2023 Telephone encount er Note Patient called again. Patient has upcoming appointment with PCP on 12/07/2023 at 4:00 PM. Patient needs a refill of Venlafaxine 37.5mg. Chart is showing she has two refills at [facility] pharmacy. Patient states pharmacy says there are no refills. Patient took her last pill yesterday 12/03/2023 and is requesting refill. Is someone able to contact [facility] and find out what is going on? Thank you. 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 [facility] 12-04-2023 Telephone encount er Note Called patient and informed her. She stated understanding. [facility] Evaluation note Diagnosis Anxiety- Primary Anxiety state, unspecified documented in this encounter [facility]* Diagnosis Postconcussive syndrome- Primary Postconcussion syndrome Strain of neck muscle, subsequent encounter Strain of lumbar region, subsequent encounter documented in this encounter [facility]* Diagnosis Fever, unspecified fever cause- Primary documented in this encounter [facility]* Diagnosis with uncertain viability, single or unspecified fetus , unspecified gestational age documented in this encounter [facility]ructionsNot on filedocumented in this [facility]* Attachments The following attachments cannot be sent through Care Everywhere. * Propranolol, ADULT (Italian) * Buspirone, ADULT (Italian) [facility]* Attachments The following attachments cannot be sent through Care Everywhere. * Post-Concussion Syndrome ED (Italian) * Concussion in adults (Italian) [facility] SystemInstructionsNot on file [facility] Summary Purpose Family History No Family History Records FoundNo Family History Records FoundNo Family History Records FoundNo Family History Records FoundNo Family History Records Found Advance Directives No Advanced Directives Records FoundNo Advanced Directives Records FoundNo Advanced Directives Records FoundNo Advanced Directives Records FoundNo Advanced Directives Records Found Additional Source Comments INFORMATION SOURCE (unrecogn ized section and content) DATE CREATED AUTHOR 12/22/2020 [facility] DATE CREATED AUTHOR AUTHOR'S ORGANIZ ATION 12/17/2023 [facility] DATE CREATED AUTHOR AUTHOR'S ORGANIZ ATION 03/29/2024 [facility] DATE CREATED AUTHOR AUTHOR'S ORGANIZ ATION 04/25/2024 [facility] DATE CREATED AUTHOR AUTHOR'S ORGANIZ ATION 09/23/2024 [facility] EPIC Reason for Visit (unrecogniz ed section and content) Reason Onset Date Comments questions regarding her medications 12/04/2023 Reason Comments Follow-up Concussion Reason Comments Med Refill Reason Comments ultrasound results Care Teams (unrecognized sec tion and content) [employer] Relationship Specialty Start Date End Date [facility] - General Nurse Practitioner 05/25/23 [employer] Relationship Specialty Start Date End Date [facility] PCP - General Nurse Practitioner 05/25/23 [employer] Relationship Specialty Start Date End Date [facility] [address] [place] [id number] PCP - General Nurse Practitioner 12/16/23 [employer] Relationship Specialty Start Date End Date Frank Bennett [facility] [address] [place] [phone] PCP - General Nurse Practitioner 12/16/23 [employer] Relationship Specialty Start Date End Date Hayden Duque MD [address] [place] [address], [address] [place] [address] PCP - General Family Medicine 05/24/23 [employer] Relationship Specialty Start Date End Date Hayden Duque MD [address] [place] [address], [address] [place] [address] PCP - General Family Medicine [...] BE BASED ON THE PRIMARY CLINICAL RECORDS. [employer] [facility] provides no warranty or guarantee of the accuracy or completeness of information in this document.
[2024-10-02 16:37] LABS: Basophils Absolute Auto 0.1 10^3/uL (0.0-0.1); Basophils Percent Auto 0.5 % (0.2-2.0); Eosinophils Absolute Auto 0.2 10^3/uL (0.0-0.7); Eosinophils Percent Auto 1.1 % (0.9-7.0); Hematocrit 42.6 % (36.0-48.0); Hemoglobin 14.6 g/dL (12.0-16.0); Immature Granulocytes Abs Auto 0.04 10^3/uL (0.00-0.03); Immature Granulocytes Pct Auto 0.3 % (0.0-0.5); Lymphocytes Absolute Auto 2.3 10^3/uL (1.2-3.8); Lymphocytes Percent Auto 17.5 % (20.5-60.0); Mean Corpuscular HGB Conc 34.3 g/dL (29.9-35.2); Mean Corpuscular Hemoglobin 30.7 pg (26.7-34.0); Mean Corpuscular Volume 89.5 fL (81.0-99.0); Mean Platelet Volume 10.8 fL (9.5-13.5); Monocytes Absolute Auto 0.8 10^3/uL (0.3-0.8); Monocytes Percent Auto 6.2 % (1.7-12.0); Neutrophils Absolute Auto 9.8 10^3/uL (1.4-6.5); Neutrophils Percent Auto 74.4 % (43.0-75.0); Platelet Count 246 10^3/uL (150-450); Red Blood Count 4.76 10^6/uL (4.20-5.40); Red Cell Distribution Width 11.8 % (11.0-15.0); White Blood Count 13.2 10^3/uL (4.0-11.0)
[2024-10-02 16:50] LABS: Amphetamine Screen Urine NEGATIVE (NEGATIVE); Barbiturates Screen Urine NEGATIVE (NEGATIVE); Benzodiazepines Screen Urine NEGATIVE (NEGATIVE); Buprenorphine Screen Urine NEGATIVE (NEGATIVE); Cannabinoid Screen Urine NEGATIVE (NEGATIVE); Cocaine Screen Urine NEGATIVE (NEGATIVE); Methadone Screen Urine NEGATIVE (NEGATIVE); Methamphetamines Screen Urine NEGATIVE (NEGATIVE); Opiate Screen Urine NEGATIVE (NEGATIVE); Oxycodone Screen Urine NEGATIVE (NEGATIVE); Phencyclidine Screen Urine NEGATIVE (NEGATIVE); Tricyclic Antidepressant Urine NEGATIVE (NEGATIVE)
[2024-10-02 17:25] LABS: Estimated Average Glucose 100 mg/dL; Glycohemoglobin A1C 5.1 % (4.5-6.2)
[2024-10-04 06:09] LABS: HBsAg Screen Negative (Negative); HCV Ab Non Reactive (Non Reactive); HIV Ab/p24 Ag Screen Non Reactive (Non Reactive)
[2024-10-04 08:16] LABS: Rubella Antibodies, IgG 3.53 index (Immune >0.99)
[2024-10-04 10:09] LABS: Rapid Plasma Reagin, Quant Non Reactive titer (NonRea<1:1)
== END 2024-10-02 16:12 | disposition home or self-care (01) ==
LOC: LAB 16:15
PROVIDERS: Visit Provider Obstetrics & Gynecology
DX: Z34.90 Encounter for supervision of normal pregnancy, unspecified, unspecified trimester (principal); N92.6 Irregular menstruation, unspecified
CPT/HCPCS: 36415; 80307; 83036; 85025; 86592; 86762; 86803; 86850; 86900; 86901; 87086; 87340; 87389

== ENCOUNTER 2024-10-30 18:56 | Outpatient (REF) | payer MEDICAID, SELFPAY ==
--- OUTSIDE RECORDS SUMMARY | 2024-10-30 19:00 | XMS_ITS | CCD ---
Author Organization [facility] Care Team Providers Care Whiskey Filterer Name Role Phone REQUEST, NONE LISTED Admitting Unavailable BRAD WRIGHT Consulting Unavailable REQUEST, NONE LISTED Attending Unavailable REQUEST, NONE LISTED Attending Unavailable REQUEST, NONE LISTED Consulting Unavailable REQUEST, NONE LISTED Admitting Unavailable Bennett Mick PUTNAMndra Primary Care Provider BENNETT, FRANK Primary Care Unavailable CHITRA JEFFREY Attending Unavailable RACHELECHITRA VO Attending Unavailable RACHELECHITRA H Referring Unavailable BENNETT, FRANK Primary Care Unavailable Bennett CANE STRIPPER-OPERATING ROOM TECH Frank Primary Care Provider BENNETT, FRANK Referring [...] Unavailable Hayden Duque MD Primary Care Provider [phone] SARAH DHALIWAL Attending Unavailable SARAH DHALIWAL Attending Unavailable Allergies Allergy Classification Reported Allergen(s) Allergy Type Date of Onset Reaction(s) Facility (9 sources) Penicillins; Translations: [PENICILLINS] Propensity to adverse reactions to drug 2 [facility] (5 sources) Penicillins Drug Intolerance 2 Palpitations [facility] [...] every six hours as needed for headache xkwhovz-wfgpejyagwtia-fofjkesd (EXCEDRIN MIGRAINE) 250-250-65 mg per tablet Take [...] hydrochloride 500 mg extended release oral tablet (5 sources) Biguanide Start: 07-07-2024 take 1 tablet by mouth every twenty-four hours at mealtime metFORMIN XR (Glucophage-XR) 500 MG 24 hr tablet Indications: Encounter for weight management Take 1 tablet (500 mg) by mouth in the evening. Take with meals Do not crush, chew, or split. 30 tablet 11 07/07/2024 Active Vit-Fe Fumarate-FA (PNV Plus Multivitamin) 27-1 MG tablet (2 sources) Start: 10-02-2024 take 1 tablet by mouth once daily Vit-Fe Fumarate-FA (PNV Plus Multivitamin) 27-1 MG tablet Indications: , unspecified gestational age Take 1 tablet by mouth Daily 30 tablet 11 10/02/2024 Active 24 hr venlafaxine 37.5 mg extended [...] sexual mode of transmission] Onset: 03-26-2024 Episodic Menstrual disorders (1 source) Missed period; Translations: [Irregular menstruation, unspecified] 10-02-2024 Chronic Mycoses (1 source) Candidal stomatitis; Translations: [Candidal stomatitis] Onset: 03-26-2024 Episodic Other complications of (6 sources) Uncertain viability of ; Translations: [ with inconclusive viability, not applicable or unspecified] Onset: 09-22-2024 09-22-2024 Episodic Other injuries and conditions due to external causes (2 sources) Injury of head Onset: 12-16-2023 Episodic Other and delivery including normal (8 sources) ; Translations: [Encounter for supervision of normal , unspecified, unspecified trimester] Onset: 09-22-2024 09-22-2024 Episodic Residual codes; unclassified (1 source) Gestation period, 12 weeks; Translations: [12 weeks gestation of ] 10-02-2024 Episodic Unclassified (1 source) Rash Onset: 03-26-2024 [...] Name Value Interpretation Reference Range Facil ity ALL CBC WITH AUTO DIFFon BASOPHILS ABSOLUTE AUTO 0.1 [facility] Basophils/100 WBC (Bld) 0.5 % 0.2 - 2.0 % [facility] Eosinophils/100 WBC (Bld) 1.1 % 0.9 - 7.0 % [facility] Erythrocyte distribution width (RBC) [Ratio] 11.8 % 11.0 - 15.0 % [facility] Hematocrit (Bld) [Volume fraction] 42.6 % 36.0 - 48.0 % [facility] Hem[facility] (Bld) [Mass/Vol] 14.6 g/dL 12.0 - 16.0 g/dL [facility] IMMATURE GRANULOCYTES ABS AUTO 0.04 High [facility] Immature granulocytes/100 WBC (Bld) 0.3 % 0.0 - 0.5 % [facility] Interpretation and review of laboratory results Abnormal [facility] LYMPHOCYTES ABSOLUTE AUTO 2.3 [facility] Lymphocytes/100 WBC (Bld) 17.5 % Low 20.5 - 60.0 % [facility] MCH (RBC) [Entitic mass] 30.7 pg 26.7 - 34.0 pg [facility] MCHC (RBC) [Mass/Vol] 34.3 g/dL 29.9 - 35.2 g/dL [facility] MCV (RBC) [Entitic vol] 89.5 fL 81.0 - 99.0 fL [facility] MONOCYTES ABSOLUTE AUTO 0.8 [facility] Monocytes/100 WBC (Bld) 6.2 % 1.7 - 12.0 % [facility] NEUTROPHILS ABSOLUTE AUTO 9.8 High [facility] Neutrophils/100 WBC (Bld) 74.4 % 43.0 - 75.0 % [facility] Platelet mean volume (Bld) [Entitic vol] 10.8 fL 9.5 - 13.5 fL [facility] E[facility] # 0.2 [facility] TB PLT 246 [facility] e TB RBC 4.76 [facility] TB WBC 13.2 High [facility] e [facility] e HCG ( test) Ql (U)o n 10-02-2024 Interpretation and review of laboratory results Abnormal [facility] Preg Test, Ur Positive Negative [facility]inalysis macro (dipstick) panel (U)on 10-02-2024 Bilirubin, UA Negative Negative - 4(70) +++ mg/dL [facility] Blood, UA Negative Negative - 50 Mike/mcL [facility] Clarity, UA Clear [facility] re Color, UA Yellow [facility] Glucose, UA Negative Negative - 1999(110) ++++ mg/dL [facility] Interpretation and review of laboratory results Normal [facility] Ketones, UA Negative Negative - 160(16) ++++ mg/dL [facility] Leukocytes, UA Negative Negative - 500+++ Bennett/mcL [facility] Nitrite, UA Negative Negative - Positive [facility] pH, UA 6 5 - 9 [facility] e Protein, UA Negative Negative - 1999(20) ++++ mg/dL [facility] Spec Grav, UA 1.025 1 - 1.03 [facility] Urobilinogen, UA 0.2 0.2 - 12 mg/dL [facility] CHLAMYDIA/GC BY PCRon 2023 CHLAMYDIA/GC BY PCR [...] are dependent on adequate specimen collection. Normal [facility] Comment on above: Performed By: #### C GS #### [facility] ([id number]) [address] [place] [address] HERPES/VARICELLA VIRAL PCRon 03-26-2024 HERPES/VARICELLA VIRAL PCR SPECIMEN SOURCE LESION ORAL CAVITY HERPES SIMPLEX 1 PCR Negative (qualifier value) HSV 1 DNA Not Detected HERPES SIMPLEX 2 PCR Negative (qualifier value) HSV 2 DNA Not Detected VARICELLA ZOSTER PCR Negative (qualifier value) VZV DNA Not Detected Normal [facility] Comment on above: Performed By: #### H SVVZV #### [facility] ([id number]) [address] [place] [address] POCT Influenza A/Influenza B /SARS-COV-2 Veritoron 12-24-2023 External Poct Influenza A Antigen Negative [facility] External Poct Influenza B Antigen Negative [facility] Interpretation and review of laboratory results Normal [facility] SARS-CoV-2 (COVID-19) Ag IA.rapid Ql (Resp) Negative [facility] CT BRAIN WO CONTon CT BRAIN WO [...] Yonas Leong on 12/16/2023 10:26 PM Normal [facility] CT CERVICAL SPINE WO CONTon [...] Efe Cruz MD on 12/16/2023 10:25 PM [facility] HCG ( test) Ql (U)o n 12-17-2023 Beta HCG ( test) Ql (U) Negative Normal [facility] Comment on above: Performed By: #### 2 106-3 #### [facility] ([id number]) [address] [place] [address] URN MACROSCOPIC NURon 2023 BILIRUBIN YIN Negative Normal [facility] Comment on above: Performed By: #### N UM #### [facility] ([id number]) [address] [place] [address] BLOOD/HGB YIN Large Abnormal NEG [facility] Comment on above: Performed By: #### N UM #### [facility] ([id number]) [address] [place] [address] GLUCOSE YIN Negative Normal [facility] Comment on above: Performed By: #### N UM #### [facility] ([id number]) [address] [place] [address]34[address] KETONES YIN Negative Normal [facility] Comment on above: Performed By: #### N UM #### [facility] ([id number]) [address] [place] [address] 79430 LEUKOCYTE ESTERASE YIN Negative Normal NEG [facility] Comment on above: Performed By: #### N UM #### [facility] ([id number]) [address] [place] [address] NITRITE YIN Negative Normal NEG [facility] Comment on above: Performed By: #### N UM #### [facility] ([id number]) [address] [place] [address] PH YIN 6.5 Normal 5.0-8.5 [facility] Comment on above: Performed By: #### N UM #### [facility] ([id number]) [address] [place] [address] PROTEIN YIN Negative Normal NEG [facility] Comment on above: Performed By: #### N UM #### [facility] ([id number]) [address] [place] [address] SPECIFIC GRAVITY YIN 1.025 Normal 1.003-1.035 [facility] Comment on above: Performed By: #### N UM #### [facility] ([id number]) [address] [place] [address] 05051 UROBILINOGEN YIN 0.2 eu/dL Normal <1.1 [facility] Comment on above: Performed By: #### N UM #### [facility] ([id number]) [address] [place] [address]681 XR SPINE LUMBAR 2 OR 3 VWSon [...] Cruz MD on 12/16/2023 10:25 PM Normal [facility] Vital Signs Date Time Vital Sign Value Performing Clinician Facility 10-02-2024 16:01-0500 Body weight 73.48 kg [facility] Nurse [facility] 09-22-2024 09:23-0500 Body weight 74.75 kg Sarah Isra DO Work Phone: [facility] 09-22-2024 09:23-0500 Diastolic blood pressure 62 mm[Hg] Sarah Isra Isonas Work Phone: [facility] 09-22-2024 09:23-0500 Systolic blood pressure 94 mm[Hg] Sarah Isra Isonas Work Phone: [facility] 12-20-2023 13:46-0500 Body mass index (BMI) [Ratio] 27.33 kg/m2 Frank Bennett CANE STRIPPER-OPERATING ROOM TECH Work Phone: [facility] 12-20-2023 13:46-0500 Body temperature 98.01 [degF] Frank Bennett CANE STRIPPER-OPERATING ROOM TECH Work Phone: [facility] 12-20-2023 13:46-0500 Body weight 67.77 kg Frank Bennett CANE STRIPPER-OPERATING ROOM TECH Work Phone: [facility] 12-20-2023 13:46-0500 Diastolic blood pressure 64 mm[Hg] Frank Bennett CANE STRIPPER-OPERATING ROOM TECH Work Phone: [facility] 12-20-2023 13:46-0500 Heart rate 99 /min Frank Bennett CANE STRIPPER-OPERATING ROOM TECH Work Phone: [facility] 12-20-2023 13:46-0500 SaO2% (BldA) [Mass fraction] 96 % Frank Bennett CANE STRIPPER-OPERATING ROOM TECH Work Phone: [facility] 12-20-2023 13:46-0500 Systolic blood pressure 116 mm[Hg] Frank Bennett CANE STRIPPER-OPERATING ROOM TECH Work Phone: [facility] 12-07-2023 16:03-0500 Body height 152.4 cm Frank Bennett CANE STRIPPER-OPERATING ROOM TECH Work Phone: [facility] 12-07-2023 16:03-0500 Body mass index (BMI) [Ratio] 29.33 kg/m2 Frank Bennett CANE STRIPPER-OPERATING ROOM TECH Work Phone: [facility] 12-07-2023 16:03-0500 Body temperature 98.49 [degF] Frank Bennett CANE STRIPPER-OPERATING ROOM TECH Work Phone: [facility] 12-07-2023 16:03-0500 Body weight 68.13 kg Frank Bennett CANE STRIPPER-OPERATING ROOM TECH Work Phone: [facility] 12-07-2023 16:03-0500 Diastolic blood pressure 78 mm[Hg] Frank Bennett CANE STRIPPER-OPERATING ROOM TECH Work Phone: [facility] 12-07-2023 16:03-0500 Heart rate 95 /min Frank Bennett CANE STRIPPER-OPERATING ROOM TECH Work Phone: [facility] 12-07-2023 16:03-0500 Respiratory rate 18 /min Frank Bennett CANE STRIPPER-OPERATING ROOM TECH Work Phone: [facility] 12-07-2023 16:03-0500 SaO2% (BldA) [Mass fraction] 98 % Frank Bennett CANE STRIPPER-OPERATING ROOM TECH Work Phone: [facility] 12-07-2023 16:03-0500 Systolic blood pressure 118 mm[Hg] Frank Bennett CANE STRIPPER-OPERATING ROOM TECH Work Phone: [facility] Encounters Encounter Date Encounter Type Care Provider Facility Start: 10-02-2024 End: 10-02-2024 ambulatory [facility] Isra Nurse [facility] Comment on above: GA: 12w2d Start: 10-02-2024 End: 10-02-2024 [facility] Result Encounter Sarah Isra DO Work Phone: [facility] Unsolicited Start: 10-02-2024 End: 10-02-2024 [facility] Result Encounter Sarah Isra DO Work Phone: [facility] Unsolicited Start: 09-22-2024 End: 09-22-2024 Bamboo flowsheet Sarah [...] Not Available Start: 04-24-2024 End: 04-24-2024 ambulatory [facility] Start: 03-26-2024 End: 03-27-2024 ambulatory [facility] Start: 03-26-2024 End: 03-26-2024 ambulatory [facility] Start: 12-25-2023 Refill Frank pop CANE STRIPPER-OPERATING ROOM TECH Work Phone: [facility] Start: 12-24-2023 End: 12-24-2023 Clinical Support Frank Bennett CANE STRIPPER-OPERATING ROOM TECH Work Phone: [facility] Comment on above: Fever, unspecified f ever cause (Primary Dx) Start: 12-20-2023 End: 12-20-2023 ambulatory [facility] Start: 12-20-2023 End: 12-20-2023 Office outpatient visit 15 minutes Frank Bennett CANE STRIPPER-OPERATING ROOM TECH Work Phone: [facility] Comment on above: Postconcussive syndr ome (Primary Dx); Strain of neck muscle, subsequent encounter; Strain of lumbar region, subsequent encounter Start: 12-16-2023 End: 12-17-2023 Emergency department patient visit CHITRA Watters RACHELE [facility] Start: 12-07-2023 End: 12-07-2023 Office outpatient visit [address] [facility] CANE STRIPPER-OPERATING ROOM TECH Work Phone: [facility] Comment on above: Anxiety (Primary Dx) Start: 12-07-2023 End: 12-07-2023 ambulatory [facility] Start: 12-04-2023 Telephone encounter Yazmin Avila CMA [facility] Comment on above: questions regarding her medications Start: 12-22-2020 End: 12-23-2020 Patient encounter procedure NONE LISTED REQUEST Facility: Start: 11-24-2020 End: 11-25-2020 Patient encounter procedure NONE LISTED REQUEST Facility: Procedures Date Procedure Procedure Detail Performing Clinician Start: 10-02-2024 ALL CBC WITH AUTO DIFF Sarah Isra DO Work Phone: Start: 10-02-2024 End: 10-02-2024 Urnls dip stick/tablet rgnt non-auto w/o micrscp Sarah Isra DO Work Phone: Start: 12-24-2023 POCT INFLUENZA A/INF LUENZA B/SARS-COV-2 VERITOR Frank Bennett CANE STRIPPER-OPERATING ROOM TECH Work Phone: Start: 12-20-2023 Follow-up visit Follow-up MICKTRISTON RA BENNETT Start: 12-07-2023 Adult depression scr eening assessment Frank Bennett CANE STRIPPER-OPERATING ROOM TECH Work Phone: Start: 05-25-2023 Adult depression scr eening assessment Yazmin Avila CMA Start: 05-24-2023 Microscopic observat ion [Identifier] in Cervix by Cyto stain Sarah Dhaliwal DO Work Phone: Plan of Treatment Date Care Activity Detail Author Start: 06-28-2028 Screening for malign ant neoplasm of cervix [facility] Start: 02-02-2028 DTaP,Tdap and Td Vaccines (7 - Td or Tdap) DTaP,Tdap and Td Vaccines (7 - Td or Tdap) [facility] Start: 05-24-2026 Screening for malign ant neoplasm of cervix Pap Smear [facility] Start: 12-23-2024 Tobacco Screening Tobacco Screening [facility] Start: 12-20-2024 Adult BMI Screening Adult BMI Screen ing [facility] Start: 12-20-2024 Tobacco Screening Tobacco Screening [facility] Start: 12-07-2024 Adult BMI Screening Adult BMI Screen ing [facility] Start: 12-07-2024 Depression Screening Depression Scre ening [facility] Start: 12-07-2024 Tobacco Screening Tobacco Screening [facility] Start: 10-23-2024 End: 10-23-2024 Patient encounter procedure 10/23/2024 11:20 AM EST Routine [facility] [address] [place] [id number] Sarah Dhaliwal, DO [facility] [place] [address] [facility] Start: 10-02-2024 End: 10-02-2024 ambulatory 10/02/2024 3:00 PM EST Initial [facility] [address] [place] [id number] [facility] Start: 10-02-2024 End: 10-02-2024 Professional / ancillary services management 10/02/2024 2:30 PM EST Ancillary Procedure [facility] [address] [place] [id number] [facility] Start: 10-02-2024 End: 10-02-2025 ABO/Rh ABO/Rh Lab Routine Missed menses , unspecified gestational age Expected: 10/02/2024 (Approximate), Expires: 10/02/2025 [facility] Comment on above: Expected: 10/02/2024 (Approximate), Expires: 10/02/2025 Start: 10-02-2024 End: 10-02-2025 Blood type and Indirect antibody screen panel - Blood Type and screen Lab Routine Missed menses , unspecified gestational age Expected: 10/02/2024 (Approximate), Expires: 10/02/2025 [facility] Work Phone: Comment on above: Expected: 10/02/2024 (Approximate), Expires: 10/02/2025 Start: 10-02-2024 End: 10-02-2025 Drugs of abuse panel - Urine by Screen method Rapid drug screen, urine Lab Routine , unspecified gestational age Encounter for supervision of normal first in first trimester Expected: 10/02/2024 (Approximate), Expires: 10/02/2025 [facility] Comment on above: Expected: 10/02/2024 (Approximate), Expires: 10/02/2025 Start: 10-02-2024 End: 10-02-2025 US Pelvis transvaginal US OB transvaginal Imaging Routine Missed menses Expected: 10/02/2024 (Approximate), Expires: 10/02/2025 [facility] Comment on above: Expected: 10/02/2024 (Approximate), Expires: 10/02/2025 Start: 10-01-2024 Adult BMI Screening Adult BMI Screen ing [facility] Start: 10-01-2024 Tobacco Screening Tobacco Screening [facility] Start: 09-22-2024 End: 09-22-2024 Patient encounter procedure 09/22/2024 8:50 AM EST Office Visit [facility] [address] [place] [address] Sarah Dhaliwal, DO [address] [place] [address] Arrived [facility] Comment on above: Arrived Start: 07-13-2024 Influenza vaccination Influenza Vacc ine (#1) [facility] Start: 05-25-2024 Depression Screening Depression Scre ening [facility] Start: 03-14-2024 End: 03-14-2024 Patient encounter procedure 03/14/2024 4:00 PM EDT Office Visit [facility] [address] [place] [address], [place] [phone] BennettFrank, CANE STRIPPER-OPERATING ROOM TECH [address] [place] [address], [place] [phone] [facility] Start: 12-07-2023 End: 12-07-2023 Patient encounter procedure 12/07/2023 4:00 PM EST Office Visit [facility] [address] [place] [address], [place] [phone] Frank Bennett, CANE STRIPPER-OPERATING ROOM TECH [address] [place] [address], [place] [phone] [facility] Start: 07-13-2023 COVID-19 Vaccine ( season) COVID-19 Vaccine () [facility] Start: 2013 Screening for malign ant neoplasm of cervix Pap Smear [facility] Start: 2010 Adult BMI Follow Up Plan Adult BMI Follow Up Plan [facility] Bacteria identified in Urine by Culture Urine culture Microbiology Routine Missed menses Ordered: 10/02/2024 [facility] Comment on above: Ordered: 10/02/2024 CBC W Auto Different ial panel - Blood CBC and differential Lab Routine Missed menses , unspecified gestational age Ordered: 10/02/2024 [facility] Comment on above: Ordered: 10/02/2024 Hemoglobin A1c/Hemoglobin.total in Blood Hemoglobin A1c Lab Routine Missed menses , unspecified gestational age Ordered: 10/02/2024 [facility] Comment on above: Ordered: 10/02/2024 Hepatitis B virus surface Ag [Presence] in Serum or Plasma by Immunoassay Hepatitis B surface antigen Lab Routine Missed menses , unspecified gestational age Ordered: 10/02/2024 [facility] Comment on above: Ordered: 10/02/2024 Hepatitis C virus Ab [Presence] in Serum or Plasma by Immunoassay Hepatitis C antibody Lab Routine Missed menses , unspecified gestational age Ordered: 10/02/2024 [facility] Comment on above: Ordered: 10/02/2024 HIV-1/HIV-2 antigen/antibody combination immunoassay HIV-1 and HIV-2 antibodies Lab Routine Missed menses , unspecified gestational age Ordered: 10/02/2024 [facility] Comment on above: Ordered: 10/02/2024 Reagin Ab [Presence] in Serum by RPR RPR Lab Routine Missed menses , unspecified gestational age Ordered: 10/02/2024 [facility] Comment on above: Ordered: 10/02/2024 Rubella antibody, IgG Rubella an tibody, IgG Lab Routine Missed menses , unspecified gestational age Ordered: 10/02/2024 [facility] Comment on above: Ordered: 10/02/2024 Immunizations Immunization Date Immunization Notes Care Provider Fa cili 08-16-2023 influenza, injectabl e, quadrivalent, preservative free Yazmindontae Avila [facility] 08-16-2023 influenza virus vacc ine, unspecified formulation Sarah Isra DO Work Phone: [facility] 02-01-2018 tetanus toxoid, redu ambrose diphtheria toxoid, and acellular pertussis vaccine, adsorbed Yazmin Avila [facility] 11-11-2012 Human Papillomavirus 9-valent vaccine Yazmin Avila [facility] 08-28-2006 influenza, seasonal, injectable Yazmin Avila [facility] 06-27-2006 tetanus toxoid, redu ambrose diphtheria toxoid, and acellular pertussis vaccine, adsorbed Yazmin Avila [facility] 08-18-2000 measles, mumps and rubella virus vaccine Yazmin Avila [facility] 02-12-1996 diphtheria, tetanus toxoids and acellular pertussis vaccine, unspecified formulation Yazmin Avila [facility] 02-12-1996 hepatitis B vaccine, pediatric or pediatric/adolescent dosage Yazmin Avila [facility] 02-06-1995 diphtheria, tetanus toxoids and acellular pertussis vaccine, unspecified formulation Yazminana Avila [facility] 02-06-1995 haemophilus influenz ae type b vaccine, conjugate unspecified formulation [facility] 02-06-1995 hepatitis B vaccine, pediatric or pediatric/adolescent dosage Yazmindontae Avila [facility] 02-06-1995 poliovirus vaccine, unspecified formulation [facility] 11-01-1994 diphtheria, tetanus toxoids and acellular pertussis vaccine, unspecified formulation [facility] 11-01-1994 haemophilus influenz ae type b vaccine, conjugate unspecified formulation Yazimn [facility] 11-01-1994 measles, mumps and rubella virus vaccine Yazmin [facility] 11-01-1994 poliovirus vaccine, unspecified formulation [facility] 03-07-1993 diphtheria, tetanus toxoids and acellular pertussis vaccine, unspecified formulation [facility] 03-07-1993 haemophilus influenz ae type b vaccine, conjugate unspecified formulation [facility] 03-07-1993 hepatitis B vaccine, pediatric or pediatric/adolescent dosage [facility] 03-07-1993 poliovirus vaccine, unspecified formulation [facility] Payers Date Payer Category Payer Medicaid [id number] 2023 Medicaid [id number] 1992 Unknown [id number] 2.16.8 40.1.583197.3.579.2.1286 1992 Unknown [id number] 2.16.8 40.1.900811.3.579.2.1286 1992 Unknown [id number] 2.16.8 40.1.905478.3.579.2.1286 1992 Unknown [id number] 2.16.8 40.1.505020.3.579.2.1286 1992 Unknown [id number] 2.16.8 40.1.133010.3.579.2.1286 1992 Unknown [id number] 2.16.8 40.1.471978.3.579.2.1286 1992 Unknown [id number] 2.16.8 40.1.838205.3.579.2.1286 1992 Unknown [id number] 2.16.8 40.1.991805.3.579.2.1286 1992 Unknown [id number] 2.16.8 40.1.554786.3.579.2.1286 1992 Unknown [id number] 2.16.8 40.1.913062.3.579.2.1286 1992 Unknown [id number] 2.16.84 0.1.154964.3.579.2.1259 1992 Unknown [id number] 2.16.84 0.1.746149.3.579.2.1259 1992 Unknown [id number] 2.16.84 0.1.971056.3.579.2.1259 1959 Self-pay Unknown [id number] 2.16.84 0.1.796901.3.579.2.593 Unknown [id number] 2.16.84 0.1.031299.3.579.2.593 Social History Date Type Detail Facility Start: 05-23-2023 End: 05-25-2023 Tobacco smoking status PAIS Never smoked tobacco [facility] Start: 05-25-2023 Tobacco use and exposure Smokeless tobacco non-user [facility] Start: 10-01-2023 End: 10-02-2024 Alcohol intake Lifetime non-drinker (finding) [facility] Start: 10-01-2023 End: 07-07-2024 History of Social function [facility] Start: 10-01-2023 End: 07-07-2024 Tobacco use panel [facility] Adolescent depressio n screening assessment 0 [facility] Start: 1990 Sex Assigned At Not on file [facility] Start: 07-22-2024 [facility] Arlene velasquez Clinical Notes 12-04-2023 to 10-02-2024 Marilyn Leigh, MA - 10/02/2024 3:00 PM Violeta Jara, GLUE JOINTER OPERATOR - 09/22/2024 8:50 AM ESTFrank Bennett, [facility] - 12/24/2023 1:00 PM Gama Bennett, [facility] - 12/20/2023 1:45 PM EST Note Date & Type Note Facility 10-02-2024 History of Presen t illness Narrative Reason for Appointment: Patient ID: Patience Jones is a 34 y.o. female who presents for No chief complaint on file. Patient presents today for a Nurse OB Intake appointment. Patient is 12w2d with a Estimated Date of Delivery: 04/14/25 OB History Para Term AB Living 1 0 0 0 0 0 SAB IAB Ectopic Multiple Live Births 0 0 0 0 0 # Outcome Date GA Lbr Roberto/2nd Weight Sex Type Anes PTL Lv 1 Current Current Medications: has a current medication list which includes the following prescription(s): metformin xr. Medical History: Active Ambulatory Problems Diagnosis Date Noted 09/22/2024 with uncertain viability 09/22/2024 Resolved Ambulatory Problems Diagnosis Date Noted No Resolved Ambulatory Problems Past Medical History: Diagnosis Date Ganglion cyst of wrist, left No family history on file. Social History Tobacco Use Smoking status: Never Smokeless tobacco: Not on file Substance Use Topics Alcohol use: Never Drug use: Not on file No past surgical history on file. Allergies Allergen Reactions Penicillins Palpitations Vitals: There is no height or weight on file to calculate BMI. BP: Patient's last menstrual period was 07/02/2024 (exact date). Assessment/Plan Diagnoses and all orders for this visit: Missed menses - Type and screen; Future - ABO/Rh; Future - CBC and differential - Hemoglobin A1c - RPR - Rubella antibody, IgG - Hepatitis B surface antigen - Hepatitis C antibody - HIV-1 and HIV-2 antibodies - Urine culture - US OB transvaginal; Future - POCT , urine manually resulted - POCT urinalysis dipstick manually resulted , unspecified gestational age - Type and screen; Future - ABO/Rh; Future - CBC and differential - Hemoglobin A1c - RPR - Rubella antibody, IgG - Hepatitis B surface antigen - Hepatitis C antibody - HIV-1 and HIV-2 antibodies - Rapid drug screen, urine; Future Encounter for supervision of normal first in first trimester - Rapid drug screen, urine; Future 12 weeks gestation of Nurse Note: OB Intake: Patient presents today for first OB visit. Patients history has been reviewed in great detail including any potential risks. Patient signed consent forms and patient desires testing in both trimesters. Patient currently has no complaints and has been advised to drink 6-8 glasses of water a day, eat no raw or undercooked meat, and stay away from [facility]. Patient has also been advised to not change litter boxes and eat 6 small meals a day. Patient has been consulted regarding the do's and don'ts of . Patient was given labs and all questions and concerns were answered. Follow Up: Patient is to return in 4 weeks for routine OB appointment. Follow Up: Patient is to have labs drawn at directed and return to office for initial OB appointment with provider. Patient may call office as needed with any concerns or questions. Nurse Visit Completed by: Marilyn Leigh MA documented in this encounter [facility] 09-22-2024 History of Presen t illness Narrative [...] nursing note reviewed. Exam conducted with a barrel inspector present. Vitals: There is no height or [...] Sarah Dhaliwal DO documented in this encounter [facility] 12-24-2023 History of Presen t illness Narrative Covid test completed today. JERSEY Shin 12/24/23 1327 documented in this encounter [facility] 12-24-2023 Miscellaneous Notes Addended by: FRANK BENNETT on: 12/24/2023 03:02 PM Modules accepted: Orders documented in this encounter [facility] 12-24-2023 Note Addended by: FRANK BENNETT on: 12/24/2023 03:02 PM Modules accepted: Orders [facility] History of Presen t illness Narrative Subjective Patient ID: Patience Jones is a 33 y.o. female. HPI Patience presents to the office for ED follow up on possible concussion. Patience went to [facility] ED on 12/16/2023 after she bumped [...] Shin 12/23/23 1428 documented in this encounter [employer] 12-07-2023 History of Presen t illness Narrative Subjective Patient ID: Patience Jones is a 33 y.o. female. SOURAV Morin presents to the office for follow up [...] morning and at bedtime. JERSEY Shin 12/09/23 1743 documented in this encounter [facility] 12-04-2023 Miscellaneous Notes Formattin g of this note might be different from the original. Please call patient, she has questions regarding her medication Patient called again. Patient has upcoming appointment with PCP on 12/07/2023 at 4:00 PM. Patient needs a refill of Venlafaxine 37.5mg. Chart is showing she has two refills at [facility] pharmacy. Patient states pharmacy says there are no refills. Patient took her last pill yesterday 12/03/2023 and is requesting refill. Is someone able to contact [facility] and find out what is going on? Thank you. Called pharmacy and they stated they had rx ready for patient to burr picker. Called patient and informed her. She stated understanding. documented in this encounter [facility] 12-04-2023 Telephone encount er Note Please call patient, she has questions regarding her medication [facility] 12-04-2023 Telephone encount er Note Patient called again. Patient has upcoming appointment with PCP on 12/07/2023 at 4:00 PM. Patient needs a refill of Venlafaxine 37.5mg. Chart is showing she has two refills at [facility] pharmacy. Patient states pharmacy says there are no refills. Patient took her last pill yesterday 12/03/2023 and is requesting refill. Is someone able to contact [facility] and find out what is going on? Thank you. [employer] 12-04-2023 Telephone encount er Note Called pharmacy and they stated they had rx ready for patient to burr picker. [facility] 12-04-2023 Telephone encount er Note Called patient and informed her. She stated understanding. [facility] Evaluation note Diagnosis Anxiety- Primary Anxiety state, unspecified [facility] Diagnosis Postconcussive syndrome- Primary Postconcussion syndrome Strain of neck muscle, subsequent encounter Strain of lumbar region, subsequent encounter [facility] Diagnosis Fever, unspecified fever cause- Primary [facility]* Diagnosis with uncertain viability, single or unspecified fetus , unspecified gestational age [facility] Diagnosis Missed menses , unspecified gestational age Encounter for supervision of normal first in first trimester 12 weeks gestation of documented in this encounter [facility] HealthcareInstructionsNot on filedocumented in this [facility]* Attachments The following attachments cannot be sent through Care Everywhere. * Propranolol, ADULT ([place]) * Buspirone, ADULT ([place]) documented in [facility]* Attachments The following attachments cannot be sent through Care Everywhere. * Post-Concussion Syndrome ED ([place]) * Concussion in adults ([place]) documented in this encounterTriHealth SystemInstructionsNot on file documented in this encounterTri[facility] System Summary Purpose Family History No Family [...] and content) DATE CREATED AUTHOR 12/22/2020 [facility] DATE CREATED AUTHOR AUTHOR'S ORGANIZ ATION 12/17/[address] [facility] DATE CREATED AUTHOR AUTHOR'S ORGANIZ ATION 03/29/2024 [facility] DATE CREATED AUTHOR AUTHOR'S ORGANIZ ATION 04/25/2024 [facility] DATE CREATED AUTHOR AUTHOR'S ORGANIZ ATION 10/05/2024 [facility] EPIC Reason for Visit (unrecogniz ed section and content) Reason Onset Date Comments questions regarding her medications 12/04/2023 Reason Comments Follow-up Concussion Reason Comments Med Refill Reason Comments ultrasound results Care Teams (unrecognized sec tion and content) Whiskey Filterer Relationship Specialty Start Date End Date Frank Bennett APRN-CNP PCP - General Nurse Practitioner 05/25/23 Whiskey Filterer Relationship Specialty Start Date End Date Frank Bennett APRN-CNP PCP - General Nurse Practitioner 05/25/23 Whiskey Filterer Relationship Specialty Start Date End Date Frank Bennett APRN-CNP [address] [place] [phone] PCP - General Nurse Practitioner 12/16/23 Whiskey Filterer Relationship Specialty Start Date End Date Frank Bennett APRN-CNP [address] [place] [phone] PCP - General Nurse Practitioner 12/16/23 Whiskey Filterer Relationship Specialty Start Date End Date Hayden Duque MD [address] [place] [address], [address] [place] [address] PCP - General Family Medicine 05/24/23 Whiskey Filterer Relationship Specialty Start Date End Date Hayden Duque MD [address] [place] [address], [address] [place] [address] PCP - General Family Medicine 05/24/23 Whiskey Filterer Relationship Specialty Start Date End Date Hayden Duque MD [address] [place] [address], [address] [place] [address] PCP - General Family Medicine 05/24/23 Whiskey Filterer Relationship Specialty Start Date End Date Hayden Duque MD [address] [place] [address], [address] [place] [address] PCP - General Family Medicine 05/24/23 FOR [...] BE BASED ON THE PRIMARY CLINICAL RECORDS. [facility]. provides no warranty or guarantee of the accuracy or completeness of information in this document.
[2024-11-10 14:10] LABS: Age Gdln ACOG Testing Note (.); HPV Aptima Positive (Negative); IGP, Aptima HPV, rfx 16/18,45 Note (.)
== END 2024-10-30 18:57 | disposition home or self-care (01) ==
LOC: LAB 18:56
PROVIDERS: Visit Provider Obstetrics & Gynecology
DX: Z01.419 Encounter for gynecological examination (general) (routine) without abnormal findings (principal)
CPT/HCPCS: 87624; 88175